=== PATIENT | male | born 1975 | race Caucasian/White ===

== ENCOUNTER → 2018-08-16 07:59 | Outpatient (CLI) | payer OTHER, SELFPAY ==
[2018-08-16 10:52] LABS: AST(SGOT) 15 U/L (15-37); Alanine Aminotransfer ALT/SGPT 39 U/L (16-61); Albumin, Serum 3.8 g/dL (3.2-5.0); Alkaline Phosphatase 156 U/L (45-117); Anion Gap 11 (5-15); BUN 18 mg/dL (7-18); BUN/Creat Ratio 16.8 RATIO (10-20); Calcium,Total 9.1 mg/dL (8.5-10.1); Chloride 101 mmol/L (98-107); Cholesterol 280 mg/dL (200); Creatinine, Serum 1.07 mg/dL (0.70-1.30); EST Glomerular Filtration Rate 81 mL/min (>60); Est Glom Filt Rate - Afr Amer 98 mL/min (>60); Globulin 3.8 g/dL (2.2-4.2); Glucose 299 mg/dL (74-106); High Density Lipoprotein 40 mg/dL; Protein, Total 7.6 g/dL (6.4-8.2); Sodium Level 138 mmol/L (136-145); Triglycerides 495 mg/dL
[2018-08-16 11:20] LABS: Hemoglobin A1c 13.5 % (4.2-6.3)
== END ==
PROVIDERS: Family Medicine; Visit Provider Nurse Practitioner Family
DX: Z00.00 Encounter for general adult medical examination without abnormal findings (principal)
CPT/HCPCS: 36415; 80053; 80061; 83036

== ENCOUNTER 2020-03-07 11:53 | Emergency (ER) | payer OTHER, SELFPAY ==
[2020-03-07 11:54] VITALS: BP 146/81; PULSE 95; RESP 17; TEMP 36.6; O2SAT 98; BMI 26.4
--- NOTE | 2020-03-07 12:14 | US_ITS ---
STUDY: SCROTUM ULTRASOUND REASON FOR EXAM: Male, 44 years old. LT TESTICLE PAIN AND SWELLING TECHNIQUE: Ultrasound evaluation of the scrotum was performed with color Doppler and static rice-scale imaging. COMPARISON: None. FINDINGS: RIGHT TESTICLE INTRATESTICULAR: There is a normal size of the right testicle. The right testicle measures 4.6 cm x 2.9 cm x 2.0 cm. There is a homogenous echotexture. There is normal arterial and normal venous vascularity. There is no demonstrated right testicular mass or cyst. EXTRATESTICULAR: The epididymis is normal in size. The epididymis head measures 0.9 cm x 1.3 cm x 1.0 cm. There is normal vascularity of the epididymis. There is no demonstrated epididymal cystic structure. There is no demonstrated hydrocele. There is no demonstrated varicocele. There is no demonstrated extratesticular mass or cyst. LEFT TESTICLE INTRATESTICULAR: There is a normal size of the left testicle. The left testicle measures 4.1 cm x 3.1 cm x 2.1 cm. There is a homogenous echotexture. There is normal arterial and normal venous vascularity. There is no demonstrated left testicular mass or cyst. EXTRATESTICULAR: The epididymis is normal in size. The epididymis head measures 0.9 cm x 1.4 cm x 1.3 cm. There is increased (hyperemic) vascularity of the epididymis. There is no demonstrated epididymal cystic structure. There is a small hydrocele. There is no demonstrated varicocele. There is no demonstrated extratesticular mass or cyst. US/Testicular with Arterial Flow IMPRESSION: Small left hydrocele. Heterogeneous appearance of the left epididymis with increased vascularity. Epididymitis should be ruled out. Electronically Signed: Tyrell Vitale, at 13:35 EDT , Service support ,
--- NOTE | 2020-03-07 12:26 | ED.DCSUM_ITS ---
History of Present Illness Informant: Patient Onset: Days - 2 days Context: Gradual Onset Timing: Continuous Quality: throbbing Location: left testicle Current Severity: Mild Maximum Severity: Moderate Worsened by: movement Relieved by: rest Associated Symptoms: constipation, dysuria Narrative: 44-year-old male presents with left testicular pain. It is been constant now for the last 2 days. He denies swelling of the scrotum. He denies trauma to the area. He is having some dysuria that started after the pain began. No penile discharge. No difficulty urinating. He does have urinary frequency specifically throughout the course of the night which also began 2 days ago after his pain started. He has been constipated for the last 2 days. He denies history of constipation. He is not having abdominal pain. He has no fever. He states that he was sexually active with his girlfriend who recently left him and it has been several weeks since he last had intercourse. He denies history of similar symptoms. He was sent in by his primary care physician Dr. Greenfield. Prior similar symptoms: No Recent Illness/Hospitalization: No <Blade Feliciano - Last Filed: 03/07/20 13:52> <Norm Lerma - Last Filed: 03/07/20 14:00> Chief Complaint: Male Pain/Injury Past Medical History Prior records reviewed: Yes Past Medical History: - - pre-diabetes Surgical History: - - right foot surgery Lives: With Family Smoking Status: Never smoker Alcohol: Occasional Drugs: None <Blade Feliciano - Last Filed: 03/07/20 13:52> <Norm Lerma - Last Filed: 03/07/20 14:00> - Allergies and Home Meds Allergies/Adverse Reactions: Allergies No Known Allergies Allergy (Verified 03/07/20 11:54) Primary Care Physician: Ester Valencia MD [Primary Care Provider] - 3-5 Days Navdeep Vazquez MD [STAFF PHYSICIAN] - Review of Systems All systems negative except as indicated General: Denies: Chills, Fever, Sweats Eyes: Denies: Visual changes - bilaterally, Diplopia ENT: Denies: Rhinorrhea, Sore throat Cardiovascular: Denies: Chest pain, Palpitations Respiratory: Denies: Dyspnea, Cough, Dyspnea on exertion Gastrointestinal: Reports: Constipation. Denies: Abdominal pain, Nausea, Vomiting, Diarrhea, Melena, Hematochezia Genitourinary: Reports: Dysuria, Frequency. Denies: Hematuria Musculoskeletal: Denies: Back pain, Extremity Pain Skin: Denies: Rash, Wounds Neurological: Denies: Headache, Weakness, Numbness <Blade Feliciano - Last Filed: 03/07/20 13:52> Physical Exam Vital Signs/Narrative: Vital Signs Temp Pulse Resp BP Pulse Ox 03/07/20 11:54 97.9 F 95 17 146/81 H 98 Inital Vital Signs reviewed: Yes General: Well nourished, Well developed, No Acute Distress Head: Normocephalic, Atraumatic Eyes: Perrl, EOMI ENT: Moist mucous membranes, No rhinorrhea Neck: Supple, Nontender Cardiovascular: Regular rate, Regular rhythm, No murmurs Respiratory: No distress, CTA bilaterally, Chest nontender Abdomen: Soft, Nontender, Nondistended, Normal bowel sounds : - - Patient has mild scrotal edema. No redness. There is no warmth. He does not have any right testicular pain on palpation. He does have pain on palpation on the left testicle. No obvious masses are palpated. He has no inguinal redness or lymphadenopathy. There is no penile discharge. Back: Nontender, Normal Inspection. Negative for: CVA tenderness Extremities: Nontender, No edema Skin: Normal color, No rash Neurological: Alert, Oriented x3, Cranial nerves II-XII grossly intact, Normal Strength, Normal Sensation Psychological: Normal affect, Normal Mood <Blade Feliciano - Last Filed: 03/07/20 13:52> Vital Signs/Narrative: Vital Signs Temp Pulse Resp BP Pulse Ox 03/07/20 11:54 97.9 F 95 17 146/81 H 98 <Norm Lerma - Last Filed: 03/07/20 14:00> Diagnostic/Tx/Re-eval Impressions Testicular Ultrasound 03/07/20 12:14 IMPRESSION: Small left hydrocele. Heterogeneous appearance of the left epididymis with increased vascularity. Epididymitis should be ruled out. Electronically Signed: Tyrell Vitale, at 13:35 EDT , Service support , 03/07/20 12:14 US Testicular [Testicular with Arterial Flow] [US] Stat - Medical Decision Making Patient declined analgesia. Testicular ultrasound demonstrated increased vascularity with a heterogeneous appearance of the left epididymis, recommended ruling out epididymitis. Clinically the patient does have pain in this area and we feel he does have epididymitis. We will treat him with antibiotics. GC and Chlamydia cultures were sent by urine. Patient states he is not been sexually active recently. He was advised on anti-inflammatories we will refer him to urology and he was given return precautions. Impressions Testicular Ultrasound 03/07/20 12:14 IMPRESSION: Small left hydrocele. Heterogeneous appearance of the left epididymis with increased vascularity. Epididymitis should be ruled out. 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 Patient has a several day history of left scrotal and testicular pain. Denies any trauma. No prior history. No fever or chills. No discharge. Lungs are clear. Heart regular rhythm no murmur. Abdomen soft nontender. Patient is external exam is tenderness to the superior lateral area of his left scrotum and testicle. There is no signs of torsion. No signs of trauma. No cellulitis. No abscess. No inguinal lymphadenopathy. No mass. Exam is consistent with epididymitis. Ultrasound consistent with increased vascularity and epididymitis. Impression: Acute left epididymitis <Norm Lerma - Last Filed: 03/07/20 14:00> ED Disposition <Blade Feliciano - Last Filed: 03/07/20 13:52> <Norm Lerma - Last Filed: 03/07/20 14:00> - Plan for ED Patient: Disposition: Home or Assisted Living Diagnosis: Epididymitis, Constipation Instructions: ED Epididymitis Prescriptions: Doxycycline 100 mg PO BID #20 cap Prescription Printed Naproxen [Naprosyn] 500 mg PO BID #14 tab Prescription Printed Referrals: Ester Valencia MD [Primary Care Provider] - 3-5 Days Navdeep Vazquez MD [STAFF PHYSICIAN] -
[2020-03-07 13:50] LABS: Bacteria 0 SEEN /hpf (None Seen); Mucous, Urine 0 SEEN /hpf (<or=2+); Squamous Epithelial Cells - UA 0 SEEN /hpf (0-5)
[2020-03-07 13:55] LABS: Color, Urine Yellow (Yellow); Glucose, Dipstick 1000 mg/dl (Normal); Ketone-Dipstick 50 mg/dl (Negative); Leukocyte Esterase-Dipstick 25 /ul (Negative); Nitrite-Dipstick Negative (Negative); Occult Blood-Urine 10 /ul (Negative); Protein-Dipstick 30 mg/dl (Negative); Urine Bilirubin Dipstick Negative (Negative); Urine Clarity Sl. Cloudy (Clear); Urine Urobilinogen 1 mg/dl (Normal)
[2020-03-07 14:04] VITALS: BP 150/82; PULSE 94; RESP 18
[2020-03-07 14:14] LABS: Red Blood Cells-Urine 0-5 SEEN /hpf (0-5); White Blood Cells 10-25 SEEN /hpf (0-5)
[2020-03-07 15:23] LABS: Chlamydia Trachomatis by PCR Negative (Negative); Neisserai gonorrhoeae by PCR Negative (Negative); Probe Check PASS; Sample Adequacy Control PASS; Specimen Processing Control PASS
== END 2020-03-07 14:04 | disposition home or self-care (01) ==
PROVIDERS: Emergency Provider Physician Assistant Medical; PCP Family Medicine
DX: N45.1 Epididymitis (principal); N43.3 Hydrocele, unspecified; K59.00 Constipation, unspecified
CPT/HCPCS: 76870; 81001; 87077; 87086; 87088; 87186; 87491; 87591; 93976; 99282

== ENCOUNTER 2024-11-20 08:15 | Outpatient (RCR) | payer OTHER, SELFPAY ==
[2024-11-06 08:23] VITALS: RESP 16; TEMP 36.2; BMI 28.3
--- NOTE | 2024-11-06 09:40 | RAD_ITS ---
EXAM: XR Right Foot Complete, 3 or More Views CLINICAL INDICATION: TECHNIQUE: Frontal, lateral and oblique views of the right foot. COMPARISON: No relevant prior studies available. FINDINGS: BONES/JOINTS: See below. SOFT TISSUES: Soft tissue swelling without acute fracture. No radiopaque foreign body. RAD/Foot min 3 Views IMPRESSION: 1. Soft tissue swelling without acute fracture. 2. If symptoms persist, repeat radiograph in 7-10 days recommended. Reading Location[facility]
--- NOTE | 2024-11-06 09:51 | PCM.WC.HP ---
History of Present Illness Date of Service: 11/06/24 [facility] Medical History (Updated 11/08/24 @ 23:[address] 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 Pressure ulcer of right heel, stage 3 Diabetic foot ulcer associated with type 2 diabetes mellitus, with fat layer exposed Diabetes mellitus Diabetic foot ulcer associated with diabetes mellitus due to underlying condition Hypertension Home Medications ?Medication ?Instructions ?Recorded ?Last Taken ?Type silver sulfadiazine 1 % topical applic topical DAILY 11/06/24 Unknown History cream (SSD) sitagliptin phosphate 50 1 tab PO BID 11/06/24 Unknown History mg-metformin 500 mg tablet (Janumet) Allergy/AdvReac Type Severity Reaction Status Date / Time No Known Allergies Allergy Verified 11/06/24 08:21 Surgical History H/O foot surgery Social History Smoking Status: Never smoker alcohol intake: current alcohol intake frequency: a few times a week Vital Signs Vital Signs Vital Signs: 11/06/24 08:23 Temperature 97.1 F L Temperature Source Temporal Respiratory Rate 16 Blood Pressure Source Monitor Blood Pressure Position Sitting Blood Pressure Location Left Arm Oxygen Delivery Method Room Air Weight Weight: 209 lb Body Mass Index (BMI) 28.3 Debridement Note Debridement Note Post-Debridement Measurements and Additional Note: Post-Debridement Measurements/Treatment WC - Nurse 1 - General Ulcer Assessment Start: 11/06/24 08:20 Freq: Status: Active Protocol: ROGER Activity Type Activity Date Activity User E-sign Co-sign Detail Recorded Client Recorded Date Recorded By Document 11/06/24 08:23 KW [id number] 11/06/24 08:35 KW 11/06/24 08:23 - Today's Visit Information Type of service Initial Visit Arrival Mode Ambulatory, Crutches Patient Identification Verified (Name & Yes ) Height and Weight Height 6 ft Weight 209 lb Weight in Pounds 209.0 lbs Weight Measurement Method Estimated by Patient Body Mass Index (BMI) 28.3 BMI Classification Overweight Vital Signs Temperature (97.8 F-99.1 F) 97.1 F L Temperature Source Temporal Pulse Location Monitor Respiratory Rate (12-18) 16 Respiratory rate source Observation Oxygen Delivery Method Room Air Source Monitor Position Sitting Blood Pressure Location Left Arm History Since Last Visit- (Skip if this is Patient's initial visit) Left Footwear Regular Shoe Right Footwear Regular Shoe Pain Scale: 0-10 Numeric Is Patient Pain Free? Yes Communication Assessment Preferred language Amharic Tray Worker Required No Able to Read Yes Able to Write Yes Communication Tools None Caregiver Communication Skills No Impairment Impairment Right Hearing Abillity Normal Left Hearing Abillity Normal Visual Assistive Devices None Teaching Assessment Preferences Verbal Barriers to Learning None Readiness To Learn Excellent Willingness to Engage in Self Management High Activies Readiness to Engage in Self Management High Activities Anxiety Level Calm Cooperation Cooperative Perception Coherent Interest in Health Problem Asks Questions Education Importance Acknowledges Need Does Patient Smoke tobacco or other Yes substances Smoking Status Never smoker Is Patient Diabetic No Functional Assessment Recent Decline in Ability to Perform Denies Any Declines Culture/Christianity/Steam Tender Cultural/Christianity Needs that may affect No Treatment Plan Would you allow our hospital pecan cleaner to No meet you for the purpose of spiritual/ emotional support? Steam Tender to contact place of adventist No WC - Nurse 1 - General Ulcer Measurement Start: 11/06/24 08:20 Freq: Status: Active Protocol: Activity Type Activity Date Activity User E-sign Co-sign Detail Recorded Client Recorded Date Recorded By Document 11/06/24 08:23 LEANN [id number] 11/06/24 08:35 KW 11/06/24 08:23 Wound Center Nurse 1 #1 rt plantar ft -Current Size (cm) - Length 1 -Current Size (cm) - Width 1.7 -Current Size (cm) - Depth 0.3 -Total Square Cm 1.7 -Date of Last Picture (Recall this 11/06/24 field) -Exudate Amt Small -Exudate Type Serosanguineous -Wound Margin Distinct, Outline Attached -Granulation Amt Large (67-100%) -Granulation Quality Red -Necrosis Amt Small (1-33%) -Texture (Wendy-wound Skin Appearance) Callus -Moisture (Wendy-wound Skin Appearance) Assessed -Color (Wendy-wound Skin Appearance) Assessed -Temperature (Wendy-wound Skin No Abnormality Appearance) (Pt Warm) -Tenderness on Palpation (Wendy-wound No Skin Appearance) -Ulcer Cleansing Rinsed/ Irrigated with Saline -Foul Odor after Cleansing No -Anesthetic Used 5% Lidocaine Gel Right Calf (cm) 38.5 Right Ankle (cm) 23.5 WC - Nurse 2 - General Ulcer CM Notes Start: 11/06/24 08:20 Freq: Status: Active Protocol: Activity Type Activity Date Activity User E-sign Co-sign Detail Recorded Client Recorded Date Recorded By Document 11/06/24 08:48 JF [id number] 11/06/24 08:53 JF 11/06/24 08:48 Wound Center Nurse 2 #1 rt plantar ft -Time 08:48 -Correct Patient Yes -Correct Side, Site, Position Yes -Correct Procedure Yes -Procedure Performed Yes -Type of Procedure Debridement -Clinical Debridement Subcutaneous -Tissue Removed Subcutaneous -Post Debridement (cm) - Length 1.0 -Post Debridement (cm) - Width 1.4 -Post Debridement (cm) - Depth 0.4 -Total Square (Post) (cm) 1.40 -Area of Debridement (cm) - Length 1.0 -Area of Debridement (cm) - Width 1.4 -Total Square (Area) (cm) 1.40 -Tunneling No -Undermining/Tunneling No -Circular Undermining No -Wound/Ulcer Outcome Not Healed -Ulcer Cleansing Rinsed/ Irrigated with Saline -Foul Odor after Cleansing No -Bioengineered Tissue No -Bleeding Controlled with Pressure -Treatment Response Procedure Tolerated Well -Offloading Yes -Type of Offloading Camwalker -Debridement - Subq, 1st 20sq cm Yes Pain Scale: 0-10 Numeric Is Patient Pain Free? Yes - Nurse 3 - General Ulcer D/C NN Start: 11/06/24 08:20 Freq: Status: Active Protocol: Activity Type Activity Date Activity User E-sign Co-sign Detail Recorded Client Recorded Date Recorded By Document 11/06/24 09:08 KW [id number] 11/06/24 09:10 KW 11/06/24 09:08 Wound Care Center Nurse 3 #1 rt plantar ft -Ulcer Cleansing Rinsed/ Irrigated with Saline -Primary Dressing Applied Promogran -Primary Dressing Covered/Secured with Dry Gauze,Dry Gauze & Roll Gauze,Secured with Tape -Promogran 1 Treatment Response Procedure Tolerated Well Pain Scale: 0-10 Numeric Is Patient Pain Free? Yes Teaching: Wound Center Dressing Your Wound -Person Taught Patient -Teaching Method Discussion, Demonstration -Response to teaching Verbalize Understanding, Reinforcement Needed WC - Visit Discharge Discharge Condition Stable Ambulatory Status Ambulatory Transportation Private Auto Medication Reconcilliation completed & No provided to patient/care provider Clinical Summary of Care Provided Yes Lab / Micro Data 11/06/24 09:28 11/06/24 09:28 Assessment/Plan Assessment/Plan (1) Diabetic foot ulcer associated with diabetes mellitus due to underlying condition: CODE(S): E08.621 - Diabetes mellitus due to underlying condition with foot ulcer; L97.509 - Non-pressure chronic ulcer of other part of unspecified foot with unspecified severity QUALIFIERS: Diabetic foot ulcer location: midfoot Laterality: right Non-pressure ulcer stage: with fat layer exposed Qualified Code(s): E08.621 - Diabetes mellitus due to underlying condition with foot ulcer; L97.412 - Non-pressure chronic ulcer of right heel and midfoot with fat layer exposed
[2024-11-06 10:42] LABS: Hematocrit 40.6 % (40-54); Hemoglobin 13.6 g/dL (13.0-16.5); Mean Corp Hgb Conc 33.5 g/dL (32-36); Mean Corpuscular Hgb 28.3 pg (27.0-32.0); Mean Corpuscular Volume 84.6 fL (80-94); Mean Platelet Vol. 10.4 fl (6.2-12.0); Platelet Count 280 K/mm3 (150-450); RBC Distribution Width CV 12.3 % (11.6-14.6); RBC Distribution Width SD 37.6 fl (35.1-43.9); White Blood Count 7.2 K/mm3 (4.4-11.0)
[2024-11-06 11:37] LABS: ALB/GLOB Ratio 0.9 RATIO (0.9-2.4); AST(SGOT) 28 U/L (15-37); Alanine Aminotransfer ALT/SGPT 45 U/L (16-61); Albumin, Serum 3.8 g/dL (3.2-5.0); Alkaline Phosphatase 146 U/L (45-117); Anion Gap 7 (5-15); BUN 23 mg/dL (7-18); BUN/Creat Ratio 20.7 RATIO (10-20); Calcium,Total 9.4 mg/dL (8.5-10.1); Chloride 104 mmol/L (98-107); Creatinine, Serum 1.11 mg/dL (0.70-1.30); EST Glomerular Filtration Rate 75 mL/min (>60); Est Glom Filt Rate - Afr Amer 91 mL/min (>60); Estimated Creatinine Clearance 98.31 ml/min; Globulin 4.2 g/dL (2.2-4.2); Glucose 234 mg/dL (74-106); Potassium 3.7 mmol/L (3.5-5.1); Sodium Level 139 mmol/L (136-145)
[2024-11-06 14:23] LABS: Hemoglobin A1c 9.4 % (3.8-5.6)
[2024-11-07 08:09] LABS: Prealbumin 33 mg/dL (12-34)
--- NOTE | 2024-11-07 15:09 | NURSING ---
PHOTO 11/06/24 RIGHT PLANTAR FOOT - INT
--- NOTE | 2024-11-08 18:09 | PCM.WC.HP ---
History of Present Illness Date of Service: 11/06/24 Chief Complaint: Right plantar foot ulceration History of Wound: This is a 49-year-old diabetic male who presented with an ulceration on the plantar surface of his right foot. The patient was referred by Dr. Mike Elizondo, a local Construction Supervisor. In June 2024, Dr. Elizondo excised a large callus from the plantar aspect of the patient's right foot. Treatment of the residual defect has included daily Epsom salts soaks, and the use of Silvadene topically. The patient has been using a cam walker boot and crutches for ambulation. 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 The patient takes Janumet for his diabetes. His most recent available hemoglobin A1c was 13.5 in 2018. His primary care physician is Dr. Ester Vaelncia. [facility] Medical History (Updated 11/08/24 @ 23:[address] 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 Pressure ulcer of right heel, stage 3 Diabetic foot ulcer associated with type 2 diabetes mellitus, with fat layer exposed Diabetes mellitus Diabetic foot ulcer associated with diabetes mellitus due to underlying condition Hypertension Home Medications ?Medication ?Instructions ?Recorded ?Last Taken ?Type silver sulfadiazine 1 % topical applic topical DAILY 11/06/24 Unknown History cream (SSD) sitagliptin phosphate 50 1 tab PO BID 11/06/24 Unknown History mg-metformin 500 mg tablet (Janumet) Allergy/AdvReac Type Severity Reaction Status Date / Time No Known Allergies Allergy Verified 11/06/24 08:21 Surgical History H/O foot surgery Social History Smoking Status: Never smoker alcohol intake: current alcohol intake frequency: a few times a week Vital Signs Vital Signs Vital Signs: Weight Weight: 209 lb Body Mass Index (BMI) 28.3 Physical Exam Const alert, oriented x3, no apparent distress, average body habitus and well nourished Constitutional Narrative: The patient's BMI is 28.3. General Appearance: cooperative, comfortable, well kempt and well developed Orientation / Consciousness: awake, oriented to person, oriented to place and oriented to time Exam Limitations: no limitations HEENT normocephalic and head/scalp atraumatic Head and Scalp: normal to inspection, normocephalic and atraumatic Face and Sinus: normal facial exam Nose: external nose normal External Ear: external ears normal Eyes EOMs intact bilaterally General Eye: normal appearance of both eyes Neck full ROM Resp normal respiratory effort, normal air movement, no retractions and no use of accessory muscles Effort and Inspection: able to speak in complete sentences Extremity no calf tenderness General Extremity: Negative for clubbing or cyanosis Skin Wound Narrative: A full-thickness ulceration is noted on the plantar aspect of the patient's right foot, extending through all layers of the dermis and into the subcutaneous tissues. It is located near the ball of the foot, at the 1st metatarso-palangeal joint. There is no obvious sign of infection or cellulitis. There is no drainage or odor. Dimensions are documented elsewhere. There is a large amount of callus and nonviable, macerated tissue circumferentially about the ulceration. It appears to be a Weiss grade 2 ulceration. Ulcer margins are not well beveled. Neuro oriented x3, CN's II-XII intact bilaterally, moves all extremities, no focal motor deficits and no sensory deficits noted Sensorium / Orientation: awake, alert, oriented to person, oriented to place and oriented to time Psych Appearance: grossly normal and appropriate Attitude: calm Activity / Motor Behavior: appropriate eye contact Speech: normal speech Mood & Affect: euthymic mood Thought Process: normal thought process Thought Content: normal thought content Attention / Concentration: attention grossly intact Debridement Note Debridement Note Wound debrided: Right plantar foot ulceration Laterality: Right Wound Grade/Stage: Weiss grade 2 Type of Debridement: Excisional debridement Anesthesia Used: 5% Lidocaine Gel Depth: Down to and including healthy tissue and in the subcutaneous layer Percentage of wound debrided: 100 Instrument Used: 5mm curette Tissue Removed: Bioburden, nonviable tissue, and callus Severity: Fat Layer Exposed Amount of bleeding with debridement: Mild Bleeding Controlled with: Compression and gauze Patient tolerated procedure: Patient tolerated procedure well Debridement Free Text: The patient's right foot ulceration is surrounded circumferentially by a large amount of callus. Effort was made to excise a portion of the callus tissue. Post-Debridement Measurements and Additional Note: Post-Debridement Measurements/Treatment WC - Nurse 1 - General Ulcer Assessment Start: 11/06/24 08:20 Freq: Status: Active Protocol: ROGER Activity Type Activity Date Activity User E-sign Co-sign Detail Recorded Client Recorded Date Recorded By Document 11/06/24 08:23 KW [id number] 11/06/24 08:35 KW 11/06/24 08:23 WC - Today's Visit Information Type of service Initial Visit Arrival Mode Ambulatory, Crutches Patient Identification Verified (Name & Yes ) Height and Weight Height 6 ft Weight 209 lb Weight in Pounds 209.0 lbs Weight Measurement Method Estimated by Patient Body Mass Index (BMI) 28.3 BMI Classification Overweight Vital Signs Temperature (97.8 F-99.1 F) 97.1 F L Temperature Source Temporal Pulse Location Monitor Respiratory Rate (12-18) 16 Respiratory rate source Observation Oxygen Delivery Method Room Air Source Monitor Position Sitting Blood Pressure Location Left Arm History Since Last Visit- (Skip if this is Patient's initial visit) Left Footwear Regular Shoe Right Footwear Regular Shoe Pain Scale: 0-10 Numeric Is Patient Pain Free? Yes Communication Assessment Preferred language [place] Grey Tender Required No Able to Read Yes Able to Write Yes Communication Tools None Caregiver Communication Skills No Impairment Impairment Right Hearing Abillity Normal Left Hearing Abillity Normal Visual Assistive Devices None Teaching Assessment Preferences Verbal Barriers to Learning None Readiness To Learn Excellent Willingness to Engage in Self Management High Activies Readiness to Engage in Self Management High Activities Anxiety Level Calm Cooperation Cooperative Perception Coherent Interest in Health Problem Asks Questions Education Importance Acknowledges Need Does Patient Smoke tobacco or other Yes substances Smoking Status Never smoker Is Patient Diabetic No Functional Assessment Recent Decline in Ability to Perform Denies Any Declines Culture/Congregational/Transport Manager Cultural/Congregational Needs that may affect No Treatment Plan Would you allow our hospital rn testing to No meet you for the purpose of spiritual/ emotional support? Transport Manager to contact place of nondenominational No WC - Nurse 1 - General Ulcer Measurement Start: 11/06/24 08:20 Freq: Status: Active Protocol: Activity Type Activity Date Activity User E-sign Co-sign Detail Recorded Client Recorded Date Recorded By Document 11/06/24 08:23 KW [id number] 11/06/24 08:35 KW 11/06/24 08:23 Wound Center Nurse 1 #1 rt plantar ft -Current Size (cm) - Length 1 -Current Size (cm) - Width 1.7 -Current Size (cm) - Depth 0.3 -Total Square Cm 1.7 -Date of Last Picture (Recall this 11/06/24 field) -Exudate Amt Small -Exudate Type Serosanguineous -Wound Margin Distinct, Outline Attached -Granulation Amt Large (67-100%) -Granulation Quality Red -Necrosis Amt Small (1-33%) -Texture (Wendy-wound Skin Appearance) Callus -Moisture (Wendy-wound Skin Appearance) Assessed -Color (Wendy-wound Skin Appearance) Assessed -Temperature (Wendy-wound Skin No Abnormality Appearance) (Pt Warm) -Tenderness on Palpation (Wendy-wound No Skin Appearance) -Ulcer Cleansing Rinsed/ Irrigated with Saline -Foul Odor after Cleansing No -Anesthetic Used 5% Lidocaine Gel Right Calf (cm) 38.5 Right Ankle (cm) 23.5 WC - Nurse 2 - General Ulcer CM Notes Start: 11/06/24 08:20 Freq: Status: Active Protocol: Activity Type Activity Date Activity User E-sign Co-sign Detail Recorded Client Recorded Date Recorded By Document 11/06/24 08:48 DALIA [id number] 11/06/24 08:53 DALIA 11/06/24 08:48 Wound Center Nurse 2 #1 rt plantar ft -Time 08:48 -Correct Patient Yes -Correct Side, Site, Position Yes -Correct Procedure Yes -Procedure Performed Yes -Type of Procedure Debridement -Clinical Debridement Subcutaneous -Tissue Removed Subcutaneous -Post Debridement (cm) - Length 1.0 -Post Debridement (cm) - Width 1.4 -Post Debridement (cm) - Depth 0.4 -Total Square (Post) (cm) 1.40 -Area of Debridement (cm) - Length 1.0 -Area of Debridement (cm) - Width 1.4 -Total Square (Area) (cm) 1.40 -Tunneling No -Undermining/Tunneling No -Circular Undermining No -Wound/Ulcer Outcome Not Healed -Ulcer Cleansing Rinsed/ Irrigated with Saline -Foul Odor after Cleansing No -Bioengineered Tissue No -Bleeding Controlled with Pressure -Treatment Response Procedure Tolerated Well -Offloading Yes -Type of Offloading Camwalker -Debridement - Subq, 1st 20sq cm Yes Pain Scale: 0-10 Numeric Is Patient Pain Free? Yes WC - Nurse 3 - General Ulcer D/C NN Start: 11/06/24 08:20 Freq: Status: Active Protocol: Activity Type Activity Date Activity User E-sign Co-sign Detail Recorded Client Recorded Date Recorded By Document 11/06/24 09:08 LEANN [id number] 11/06/24 09:10 KW 11/06/24 09:08 Wound Care Center Nurse 3 #1 rt plantar ft -Ulcer Cleansing Rinsed/ Irrigated with Saline -Primary Dressing Applied Promogran -Primary Dressing Covered/Secured with Dry Gauze,Dry Gauze & Roll Gauze,Secured with Tape -Promogran 1 Treatment Response Procedure Tolerated Well Pain Scale: 0-10 Numeric Is Patient Pain Free? Yes Teaching: Wound Center Dressing Your Wound -Person Taught Patient -Teaching Method Discussion, Demonstration -Response to teaching Verbalize Understanding, Reinforcement Needed WC - Visit Discharge Discharge Condition Stable Ambulatory Status Ambulatory Transportation Private Auto Medication Reconcilliation completed & No provided to patient/care provider Clinical Summary of Care Provided Yes Lab / Micro Data 11/06/24 09:28 11/06/24 09:28 Charges/Coding Multi Select Codes Visit Charges Office Visit/Consults: 84637 OV L4 New 45 min Integumentary Integumentary CPT Codes: 13881 Rani subq tissue 20 sq cm/< Assessment/Plan Assessment/Plan (1) Diabetic foot ulcer associated with type 2 diabetes mellitus, with fat layer exposed: CODE(S): E11.621 - Type 2 diabetes mellitus with foot ulcer; L97.502 - Non-pressure chronic ulcer of other part of unspecified foot with fat layer exposed QUALIFIERS: Diabetic foot ulcer location: midfoot Laterality: right Qualified Code(s): E11.621 - Type 2 diabetes mellitus with foot ulcer; L97.412 - Non-pressure chronic ulcer of right heel and midfoot with fat layer exposed (2) Non-pressure chronic ulcer of other part of right foot with fat layer exposed: CODE(S): L97.512 - Non-pressure chronic ulcer of other part of right foot with fat layer exposed (3) Diabetic foot ulcer associated with diabetes mellitus due to underlying condition: CODE(S): E08.621 - Diabetes mellitus due to underlying condition with foot ulcer; L97.509 - Non-pressure chronic ulcer of other part of unspecified foot with unspecified severity QUALIFIERS: Diabetic foot ulcer location: midfoot Laterality: right Non-pressure ulcer stage: with fat layer exposed Qualified Code(s): E08.621 - Diabetes mellitus due to underlying condition with foot ulcer; L97.412 - Non-pressure chronic ulcer of right heel and midfoot with fat layer exposed (4) Diabetes mellitus: CODE(S): E11.9 - Type 2 diabetes mellitus without complications PLAN: Plan This is a 49-year-old male who presented with a large ulceration on the plantar aspect of the right foot. The origin of the ulceration dates back to June 2024, at which time his Construction Supervisor excised a large callus. Since that time, as per instructions from his Construction Supervisor, the patient has been soaking the ulcer site daily with Epsom salts. He has been using Silvadene topically. It appears to be a Weiss grade 2 ulceration, and has failed to show signs of significant healing. The patient has been referred for definitive management. The patient is now instructed to forego daily soaking. We are to implement the use of Promogran topically to the ulceration on a daily basis. The patient has been instructed in the appropriate means of application. An excisional debridement has been performed [facility]. However, there remains a large amount of callus that will require additional excisional debridement in the near future. This nonviable callus will require removal before healing can progress by secondary intention. The patient has been instructed to optimize his glycemic control. Collaboration with his primary care physician has been recommended. He is to continue using his CAM walker boot and crutches for ambulation. We are to obtain routine diagnostic studies which will include laboratory studies (CBC, CMP, total protein, serum pre-albumin, and hemoglobin A1c). X-rays of the right foot will be obtained. A noninvasive lower extremity arterial study will also be ordered. The patient is to return in 1 week for reevaluation. Total time: 48 minutes
[2024-11-13 08:10] VITALS: BP 179/92; PULSE 84; RESP 18; TEMP 36.2; BMI 28.3
--- NOTE | 2024-11-16 13:00 | HP.PCM_ITS ---
History of Present Illness Date of Service: 11/13/24 Chief Complaint: Right plantar foot ulceration History of Wound: This is a 49-year-old diabetic male who presented with an ulceration on the plantar surface of his right foot. The patient was referred by Dr. Mike Elizondo, a local Respite Provider. In June 2024, Dr. Elizondo excised a large callus from the plantar aspect of the patient's right foot. Treatment of the residual defect included daily Epsom salts soaks, and the use of Silvadene topically. The patient has been using a cam walker boot and crutches for ambulation. 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 The patient takes Janumet for his diabetes. His most recent available hemoglobin A1c was 13.5 in 2018. His primary care physician is Dr. Ester Valencia. 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 Pressure ulcer of right heel, stage 3 Diabetic foot ulcer associated with type 2 diabetes mellitus, with fat layer exposed Diabetes mellitus Diabetic foot ulcer associated with diabetes mellitus due to underlying condition Hypertension Home Medications ?Medication ?Instructions ?Recorded ?Last Taken ?Type silver sulfadiazine 1 % topical applic topical DAILY 0 11/06/24 Unknown History cream (SSD) sitagliptin phosphate 50 1 tab PO BID 11/06/24 Unknow n History mg-metformin 500 mg tablet (Janumet) Allergy/AdvReac Type Severity Reaction Status Date / Time No Known Allergies Allergy Verified 11/06/24 08:21 Surgical History H/O foot surgery Social History Smoking Status: Never smoker alcohol intake: current alcohol intake frequency: a few times a week Vital Signs Vital Signs Vital Signs: Weight Weight: 209 lb Body Mass Index (BMI) 28.3 Physical Exam Const alert, oriented x3, no apparent distress, average body habitus and well nourished Constitutional Narrative: The patient's BMI is 28.3. General Appearance: cooperative, comfortable, well kempt and well developed Orientation / Consciousness: awake, oriented to person, oriented to place and oriented to time Exam Limitations: no limitations HEENT normocephalic and head/scalp atraumatic Head and Scalp: normal to inspection, normocephalic and atraumatic Face and Sinus: normal facial exam Nose: external nose normal External Ear: external ears normal Eyes EOMs intact bilaterally General Eye: normal appearance of both eyes Neck full ROM Resp normal respiratory effort, normal air movement, no retractions and no use of accessory muscles Effort and Inspection: able to speak in complete sentences Extremity no calf tenderness General Extremity: Negative for clubbing or cyanosis Skin Wound Narrative: A full-thickness ulceration is noted on the plantar aspect of the patient's right foot, extending through all layers of the dermis and into the subcutaneous tissues. It is located near the ball of the foot, at the 1st metatarso- palangeal joint. There is no obvious sign of infection or cellulitis. There is no drainage or odor. Dimensions are documented elsewhere. There is a large amount of callus and nonviable tissue circumferentially about the ulceration. It appears to be a Weiss grade 2 ulceration. Ulcer margins are not well beveled. Neuro oriented x3, CN's II-XII intact bilaterally, moves all extremities, no focal motor deficits and no sensory deficits noted Sensorium / Orientation: awake, alert, oriented to person, oriented to place and oriented to time Psych Appearance: grossly normal and appropriate Attitude: calm Activity / Motor Behavior: appropriate eye contact Speech: normal speech Mood & Affect: euthymic mood Thought Process: normal thought process Thought Content: normal thought content Attention / Concentration: attention grossly intact Debridement Note Debridement Note Wound debrided: Right plantar foot ulceration Laterality: Right Wound Grade/Stage: Weiss Grade 2 Type of Debridement: Excisional debridement Anesthesia Used: 5% Lidocaine Gel Depth: Down to and including healthy tissue and in the subcutaneous layer Percentage of wound debrided: 100 Instrument Used: 5mm curette, #15 blade, Forceps and - (Rongeur) Tissue Removed: Bioburden, nonviable tissue, and callus Severity: Fat Layer Exposed Amount of bleeding with debridement: Mild Bleeding Controlled with: Compression and gauze Patient tolerated procedure: Patient tolerated procedure well Debridement Free Text: The patient's right foot ulceration is surrounded circumferentially by a large amount of callus. Effort was made to excise a portion of the callus tissue. Post-Debridement Measurements and Additional Note: Post-Debridement Measurements/Treatment - Nurse 1 - General Ulcer Assessment Start: 11/06/24 08:20 Freq: Status: Active Protocol: ROGER Activity Type Activity Date Activity User E-sign Co-sign Detail Recorded Client Recorded Date Recorded By Document 11/06/24 08:23 KW [id number] 11/06/24 08:35 KW Document 11/13/24 08:10 RB [id number] 11/13/24 08:15 RB 11/06/24 11/13/24 08:23 08:10 WC - Today's Visit Information Type of service Initial Visit Follow-up Visit (Physician/FOOD AND BEVERAGE MANAGER ) Arrival Mode Ambulatory, Ambulatory Crutches Transfer Assistance None Patient Identification Verified (Name & Yes Yes ) Patient Requires Transmission-Based No Precautions Height and Weight Height 6 ft Weight 209 lb Weight in Pounds 209.0 lbs Weight Measurement Method Estimated by Patient Body Mass Index (BMI) 28.3 28.3 BMI Classification Overweight Overweight Vital Signs Temperature (97.8 F-99.1 F) 97.1 F L 97.2 F L Temperature Source Temporal Temporal Pulse Rate (60-100) 84 Pulse Location Monitor Monitor Respiratory Rate (12-18) 16 18 Respiratory rate source Observation Observation Oxygen Delivery Method Room Air Blood Pressure (90/60-120/80) 179/92 H Blood Pressure Mean 121 Source Monitor Monitor Position Sitting Semi-Fowlers Blood Pressure Location Left Arm Left Arm History Since Last Visit- (Skip if this is Patient's initial visit) Have you changed medications since your No last visit? Any new allergies or adverse reactions No Had a fall/change in ADL's that may No increase risk of falls Signs or symptoms of abuse and/or No neglect since last visit Have you been in the hospital since your No last visit? Has dressing in place as prescribed Yes Has compression in place as prescribed N/A Has offloadiing in place as prescribed Yes Experienced any changes in pain level or No management Left Footwear Regular Shoe Regular Shoe Right Footwear Regular Shoe Removable Cast Walker/Walking Boot Pain Scale: 0-10 Numeric Is Patient Pain Free? Yes Yes Communication Assessment Preferred language Austrian Florist Supplies Salesperson Required No Able to Read Yes Able to Write Yes Communication Tools None Caregiver Communication Skills No Impairment Impairment Right Hearing Abillity Normal Left Hearing Abillity Normal Visual Assistive Devices None Teaching Assessment Preferences Verbal Barriers to Learning None Readiness To Learn Excellent Willingness to Engage in Self Management High Activies Readiness to Engage in Self Management High Activities Anxiety Level Calm Cooperation Cooperative Perception Coherent Interest in Health Problem Asks Questions Education Importance Acknowledges Need Does Patient Smoke tobacco or other Yes substances Smoking Status Never smoker Is Patient Diabetic No Functional Assessment Recent Decline in Ability to Perform Denies Any Declines Culture/Hindu/Physical Anthropologist Cultural/Hindu Needs that may affect No Treatment Plan Would you allow our hospital credit correspondence clerk to No meet you for the purpose of spiritual/ emotional support? Physical Anthropologist to contact place of jehovah's witness No WC - Nurse 1 - General Ulcer Measurement Start: 11/06/24 08:20 Freq: Status: Active Protocol: Activity Type Activity Date Activity User E-sign Co-sign Detail Recorded Client Recorded Date Recorded By Document 11/06/24 08:23 KW [id number] 11/06/24 08:35 KW Document 11/13/24 08:10 RB [id number] 11/13/24 08:15 RB 11/06/24 11/13/24 08:23 08:10 Wound Center Nurse 1 #1 rt plantar ft -Combined with other wound No -Current Size (cm) - Length 1 0.8 -Current Size (cm) - Width 1.7 1.6 -Current Size (cm) - Depth 0.3 0.3 -Total Square Cm 1.7 1.28 -Date of Last Picture (Recall this 11/06/24 field) -Tunneling No -Undermining/Tunneling No -Circular Undermining No -Exudate Amt Small Medium -Exudate Type Serosanguineous Serosanguineous -Wound Margin Distinct, Thickened & Outline Rolled Under Attached -Granulation Amt Large (67-100%) Medium (34-66%) -Granulation Quality Red [place] -Slough/Fibrin Yes -Necrosis Amt Small (1-33%) Medium (34-66%) -Necrotic Tissue Type Adherent Slough -Structure Exposed N/A -Texture (Wendy-wound Skin Appearance) Callus Assessed,Callus -Moisture (Wendy-wound Skin Appearance) Assessed Assessed -Color (Wendy-wound Skin Appearance) Assessed Assessed -Temperature (Wendy-wound Skin No Abnormality No Abnormality Appearance) (Pt Warm) (Pt Warm) -Tenderness on Palpation (Wendy-wound No No Skin Appearance) -Ulcer Cleansing Rinsed/ Wound Cleanser Irrigated with Saline -Foul Odor after Cleansing No No -Anesthetic Used 5% Lidocaine 5% Lidocaine Gel Gel Right Calf (cm) 38.5 Right Ankle (cm) 23.5 WC - Nurse 2 - General Ulcer CM Notes Start: 11/06/24 08:20 Freq: Status: Active Protocol: Activity Type Activity Date Activity User E-sign Co-sign Detail Recorded Client Recorded Date Recorded By Document 11/06/24 08:48 JF [id number] 11/06/24 08:53 JF Document 11/13/24 08:33 JF [id number] 11/13/24 08:35 JF Edit Result 11/13/24 08:33 JF (1) [id number] 11/13/24 08:36 JF (1) #1 rt plantar ft - Bleeding Controlled with Pressure => Pressure,Silver => Nitrate 11/06/24 11/13/24 08:48 08:33 Wound Center Nurse 2 #1 rt plantar ft -Time 08:48 08:34 -Correct Patient Yes Yes -Correct Side, Site, Position Yes Yes -Correct Procedure Yes Yes -Procedure Performed Yes Yes -Type of Procedure Debridement Debridement -Clinical Debridement Subcutaneous Subcutaneous -Tissue Removed Subcutaneous Subcutaneous -Post Debridement (cm) - Length 1.0 1.3 -Post Debridement (cm) - Width 1.4 2.3 -Post Debridement (cm) - Depth 0.4 0.3 -Total Square (Post) (cm) 1.40 2.99 -Area of Debridement (cm) - Length 1.0 1.3 -Area of Debridement (cm) - Width 1.4 2.3 -Total Square (Area) (cm) 1.40 2.99 -Tunneling No No -Undermining/Tunneling No No -Circular Undermining No No -Wound/Ulcer Outcome Not Healed Not Healed -Ulcer Cleansing Rinsed/ Rinsed/ Irrigated with Irrigated with Saline Saline -Foul Odor after Cleansing No No -Bioengineered Tissue No No -Bleeding Controlled with Pressure Pressure,Silver Nitrate -Treatment Response Procedure Procedure Tolerated Well Tolerated Well -Offloading Yes Yes -Type of Offloading Camwalker Camwalker -Debridement - Subq, 1st 20sq cm Yes Yes Pain Scale: 0-10 Numeric Is Patient Pain Free? Yes Yes VARUN - Nurse 3 - General Ulcer D/C NN Start: 11/06/24 08:20 Freq: Status: Active Protocol: Activity Type Activity Date Activity User E-sign Co-sign Detail Recorded Client Recorded Date Recorded By Document 11/06/24 09:08 KW [id number] 11/06/24 09:10 KW Document 11/13/24 08:49 RB [id number] 11/13/24 08:49 RB 11/06/24 11/13/24 09:08 08:49 Wound Care Center Nurse 3 #1 rt plantar ft -Ulcer Cleansing Rinsed/ Rinsed/ Irrigated with Irrigated with Saline Saline -Primary Dressing Applied Promogran Promogran -Primary Dressing Covered/Secured with Dry Gauze,Dry Dry Gauze, Gauze & Roll Secured with Gauze,Secured Tape with Tape -Promogran 1 1 Treatment Response Procedure Procedure Tolerated Well Tolerated Well Pain Scale: 0-10 Numeric Is Patient Pain Free? Yes Yes Teaching: Wound Center Dressing Your Wound -Person Taught Patient Patient,Family -Teaching Method Discussion, Discussion, Demonstration Demonstration -Response to teaching Verbalize Verbalize Understanding, Understanding Reinforcement Needed WC - Visit Discharge Discharge Condition Stable Stable Ambulatory Status Ambulatory Ambulatory, Crutches Transportation Private Auto Private Auto Medication Reconcilliation completed & No No provided to patient/care provider Clinical Summary of Care Provided Yes Yes Lab / Micro Data Attestation: I reviewed the patient's lab results. Lab results narrative: Laboratory Tests 11/06/24 09:28 WBC 7.2 Hgb 13.6 Hct 40.6 Plt Count 280 Sodium 139 Potassium 3.7 Chloride 104 BUN 23 H Creatinine 1.11 Glucose 234 H Hemoglobin A1c 9.4 H Calcium 9.4 Total Bilirubin 0.50 AST 28 ALT 45 Alkaline Phosphatase 146 H Total Protein 8.0 Albumin 3.8 Prealbumin 33 11/06/24 09:28 11/06/24 09:28 Charges/Coding Procedures Integumentary [id number]: [id number] Rani subq tissue 20 sq cm/< Assessment/Plan Assessment/Plan (1) Diabetic foot ulcer associated with type 2 diabetes mellitus, with fat layer exposed: CODE(S): E11.621 - Type 2 diabetes mellitus with foot ulcer; L97.502 - Non-pressure chronic ulcer of other part of unspecified foot with fat layer exposed QUALIFIERS: Diabetic foot ulcer location: midfoot Laterality: r ight Qualified Code(s): E11.621 - Type 2 diabetes mellitus with foot ulcer; L97.412 - Non-pressure chronic ulcer of right heel and midfoot with fat layer exposed (2) Non-pressure chronic ulcer of other part of right foot with fat layer exposed: CODE(S): L97.512 - Non-pressure chronic ulcer 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9 - Type 2 diabetes mellitus without complications PLAN: Plan This is a 49-year-old male who presented with a large ulceration on the plantar aspect of the right foot. The origin of the ulceration dates back to June 2024, at which time his Respite Provider excised a large callus. Since that time, as per instructions from his Respite Provider, the patient had been soaking the ulcer site daily with Epsom salts. He had been using Silvadene topically. It appears to be a Weiss grade 2 ulceration, and has failed to show signs of significant healing. The patient has been referred for definitive management. The patient is now instructed to forego daily soaking. We are to continue the use of Promogran topically to the ulceration on a daily basis. The patient has been instructed in the appropriate means of application. An excisional debridement has been performed in the [facility] today. Effort was made to remove a large portion of the circumferential callus. However, there remains a large amount of callus that will require additional excisional debridement in the near future. This nonviable callus will require removal before healing can progress by secondary intention, as the wound margins should, ideally, consist of healthy and viable tissue, with adequate beveling. The patient has been instructed to optimize his glycemic control. Collaboration with his primary care physician has been recommended. His recent laboratory results have been reviewed, and it is noted that his hemoglobin A1c was 9.4, and serum glucose 234. Total protein was 8.0 and serum free albumin was 33. The patient has been encouraged to continue consuming a nutritious, high-protein diet. He is to continue using his CAM walker boot and crutches for ambulation for offloading purposes. X-rays of the right foot revealed soft tissue swelling. A noninvasive lower extremity arterial study is pending. The patient is to return in 1 week for reevaluation. Total time: 25 minutes
[2024-11-20 08:33] VITALS: BP 150/83; PULSE 83; RESP 18; TEMP 35.9; BMI 28.3
--- NOTE | 2024-11-20 09:14 | PN.PCM_ITS ---
History of Present Illness Date of Service: 11/20/24 Chief Complaint: Right plantar foot ulceration History of Wound: This is a 49-year-old diabetic male who presented with an ulceration on the plantar surface of his right foot. The patient was referred by Dr. Mike Elizondo, a local Dsp Engineer. In June 2024, Dr. Elizondo excised a large callus from the plantar aspect of the patient's right foot. Treatment of the residual defect included daily Epsom salts soaks, and the use of Silvadene topically. The patient has been using a cam walker boot and crutches for ambulation. 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 The patient takes Janumet for his diabetes. His most recent available hemoglobin A1c was 13.5 in 2018. His primary care physician is Dr. Ester Valencia. Progress of Wound: No changes today. Denies fever chills nausea vomiting chest pain calf pain shortness of breath. PICC patient compliant with treatment; however, presents in boot that is covered in mud today. Objective Data Objective Data Vital Signs: Vital Signs Temp Pulse Resp BP O2 Del Method 96.6 F L 83 18 150/83 H Room Air 11/20/24 08:33 11/20/24 08:33 11/20/24 08:33 11/20/24 08:33 11/06/24 08:23 Oxygen Delivery Method Room Air Weight: 94.801 kg Body Mass Index (BMI) 28.3 Lab / Micro Data 11/06/24 09:28 11/06/24 09:28 Physical Exam Narrative Vascular: Dorsalis pedis posterior tibial pulses palpable for the left foot. Digital hair growth noted. Some edema noted to the left foot. Neurologic: Absent light touch protective sensation of bilateral feet. Dermatologic: Full-thickness wound noted to the plantar first metatarsophalangeal joint right foot. Wound demonstrates some undermining with hyperkeratosis to periwound area with clean granular base. No deep probing. Pre and postdebridement measurements document nursing notes. No acute signs of infection noted today. Musculoskeletal: Rigidly plantarflexed first ray right foot. Patient has history of foot reconstruction when he was a kid believe this created a plantarflexed first ray which is now causing ulceration to the plantar first MPJ due to setting of diabetic neuropathy. Const alert and oriented x3 Debridement Note Debridement Note Post-Debridement Measurements and Additional Note: Post-Debridement Measurements/Treatment WC - Nurse 1 - General Ulcer Assessment Start: 11/06/24 08:20 Freq: Status: Active Protocol: ROEGR Activity Type Activity Date Activity User E-sign Co-sign Detail Recorded Client Recorded Date Recorded By Document 11/06/24 08:23 KW [id number] 11/06/24 08:35 KW Document 11/13/24 08:10 RB [id number] 11/13/24 08:15 RB Document 11/20/24 08:33 RB [id number] 11/20/24 08:35 RB 11/06/24 11/13/24 11/20/24 08:23 08:10 08:33 WC - Today's Visit Information Type of service Initial Visit Follow-up Visit Follow-up Visit (Physician/CONSUMER ADVOCATE (Physician/CONSUMER ADVOCATE ) ) Arrival Mode Ambulatory, Ambulatory Ambulatory Crutches Transfer Assistance None None Patient Identification Verified (Name & Yes Yes Yes ) Patient Requires Transmission-Based No No Precautions Height and Weight Height 6 ft Weight 94.801 kg Weight in Pounds 209.0 lbs Weight Measurement Method Estimated by Patient Body Mass Index (BMI) 28.3 28.3 28.3 BMI Classification Overweight Overweight Overweight Vital Signs Temperature (97.8 F-99.1 F) 97.1 F L 97.2 F L 96.6 F L Temperature Source Temporal Temporal Temporal Pulse Rate (60-100) 84 83 Pulse Location Monitor Monitor Monitor Respiratory Rate (12-18) 16 18 18 Respiratory rate source Observation Observation Observation Oxygen Delivery Method Room Air Blood Pressure (90/60-120/80) 179/92 H 150/83 H Blood Pressure Mean (mm Hg) 121 105 Source Monitor Monitor Monitor Position Sitting Semi-Fowlers Semi-Fowlers Blood Pressure Location Left Arm Left Arm Left Arm History Since Last Visit- (Skip if this is Patient's initial visit) Have you changed medications since your No No last visit? Any new allergies or adverse reactions No No Had a fall/change in ADL's that may No No increase risk of falls Signs or symptoms of abuse and/or No No neglect since last visit Have you been in the hospital since your No No last visit? Has dressing in place as prescribed Yes Yes Has compression in place as prescribed N/A No Has offloadiing in place as prescribed Yes Yes Experienced any changes in pain level or No No management Left Footwear Regular Shoe Regular Shoe Regular Shoe Right Footwear Regular Shoe Removable Cast Removable Cast Walker/Walking Walker/Walking Boot Boot Pain Scale: 0-10 Numeric Is Patient Pain Free? Yes Yes Yes Communication Assessment Preferred language Spanish Director Facilities Maintenance Required No Able to Read Yes Able to Write Yes Communication Tools None Caregiver Communication Skills No Impairment Impairment Right Hearing Abillity Normal Left Hearing Abillity Normal Visual Assistive Devices None Teaching Assessment Preferences Verbal Barriers to Learning None Readiness To Learn Excellent Willingness to Engage in Self Management High Activies Readiness to Engage in Self Management High Activities Anxiety Level Calm Cooperation Cooperative Perception Coherent Interest in Health Problem Asks Questions Education Importance Acknowledges Need Does Patient Smoke tobacco or other Yes substances Smoking Status Never smoker Is Patient Diabetic No Functional Assessment Recent Decline in Ability to Perform Denies Any Declines Culture/Faith/Electrogalvanizing Machine Operator Cultural/Faith Needs that may affect No Treatment Plan Would you allow our hospital armhole baster jumpbasting to No meet you for the purpose of spiritual/ emotional support? Electrogalvanizing Machine Operator to contact place of yazdanism No WC - Nurse 1 - General Ulcer Measurement Start: 11/06/24 08:20 Freq: Status: Active Protocol: Activity Type Activity Date Activity User E-sign Co-sign Detail Recorded Client Recorded Date Recorded By Document 11/06/24 08:23 KW [id number] 11/06/24 08:35 KW Document 11/13/24 08:10 RB [id number] 11/13/24 08:15 RB Document 11/20/24 08:33 RB [id number] 11/20/24 08:35 RB 11/06/24 11/13/24 11/20/24 08:23 08:10 08:33 Wound Center Nurse 1 #1 rt plantar ft -Combined with other wound No No -Current Size (cm) - Length 1 0.8 1 -Current Size (cm) - Width 1.7 1.6 1.2 -Current Size (cm) - Depth 0.3 0.3 0.5 -Total Square Cm 1.7 1.28 1.2 -Date of Last Picture (Recall this 11/06/24 field) -Photo Taken Yes -Tunneling No No -Undermining/Tunneling No No -Circular Undermining No No -Exudate Amt Small Medium Medium -Exudate Type Serosanguineous Serosanguineous Serosanguineous -Wound Margin Distinct, Thickened & Thickened Outline Rolled Under Attached -Granulation Amt Large (67-100%) Medium (34-66%) Medium (34-66%) -Granulation Quality Red Lorton Lorton -Slough/Fibrin Yes Yes -Necrosis Amt Small (1-33%) Medium (34-66%) Medium (34-66%) -Necrotic Tissue Type Adherent Slough Adherent Slough -Structure Exposed N/A N/A -Texture (Wendy-wound Skin Appearance) Callus Assessed,Callus Assessed,Callus -Moisture (Wedny-wound Skin Appearance) Assessed Assessed Assessed -Color (Wendy-wound Skin Appearance) Assessed Assessed Assessed -Temperature (Wendy-wound Skin No Abnormality No Abnormality No Abnormality Appearance) (Pt Warm) (Pt Warm) (Pt Warm) -Tenderness on Palpation (Wendy-wound No No No Skin Appearance) -Ulcer Cleansing Rinsed/ Wound Cleanser Wound Cleanser Irrigated with Saline -Foul Odor after Cleansing No No No -Anesthetic Used 5% Lidocaine 5% Lidocaine 5% Lidocaine Gel Gel Gel Right Calf (cm) 38.5 Right Ankle (cm) 23.5 WC - Nurse 2 - General Ulcer CM Notes Start: 11/06/24 08:20 Freq: Status: Active Protocol: Activity Type Activity Date Activity User E-sign Co-sign Detail Recorded Client Recorded Date Recorded By Document 11/06/24 08:48 [id number] 11/06/24 08:53 Document 11/13/24 08:33 [id number] 11/13/24 08:35 Edit Result 11/13/24 08:33 (1) [id number] 11/13/24 08:36 Document 11/20/24 08:54 [id number] 11/20/24 08:58 JF (1) #1 rt plantar ft - Bleeding Controlled with Pressure => Pressure,Silver => Nitrate 11/06/24 11/13/24 11/20/24 08:48 08:33 08:54 Wound Center Nurse 2 #1 rt plantar ft -Time 08:48 08:34 08:55 -Correct Patient Yes Yes Yes -Correct Side, Site, Position Yes Yes Yes -Correct Procedure Yes Yes Yes -Procedure Performed Yes Yes Yes -Type of Procedure Debridement Debridement Debridement -Clinical Debridement Subcutaneous Subcutaneous Subcutaneous -Tissue Removed Subcutaneous Subcutaneous Subcutaneous -Post Debridement (cm) - Length 1.0 1.3 1.2 -Post Debridement (cm) - Width 1.4 2.3 1.7 -Post Debridement (cm) - Depth 0.4 0.3 0.3 -Total Square (Post) (cm) 1.40 2.99 2.04 -Area of Debridement (cm) - Length 1.0 1.3 1.2 -Area of Debridement (cm) - Width 1.4 2.3 1.7 -Total Square (Area) (cm) 1.40 2.99 2.04 -Tunneling No No No -Undermining/Tunneling No No No -Circular Undermining No No No -Wound/Ulcer Outcome Not Healed Not Healed Not Healed -Ulcer Cleansing Rinsed/ Rinsed/ Rinsed/ Irrigated with Irrigated with Irrigated with Saline Saline Saline -Foul Odor after Cleansing No No No -Bioengineered Tissue No No No -Bleeding Controlled with Pressure Pressure,Silver Pressure Nitrate -Treatment Response Procedure Procedure Procedure Tolerated Well Tolerated Well Tolerated Well -Offloading Yes Yes Yes -Type of Offloading Camwalker Camwalker Camwalker -Debridement - Subq, 1st 20sq cm Yes Yes Yes Pain Scale: 0-10 Numeric Is Patient Pain Free? Yes Yes Yes WC - Nurse 3 - General Ulcer D/C NN Start: 11/06/24 08:20 Freq: Status: Active Protocol: Activity Type Activity Date Activity User E-sign Co-sign Detail Recorded Client Recorded Date Recorded By Document 11/06/24 09:08 KW [id number] 11/06/24 09:10 KW Document 11/13/24 08:49 RB [id number] 11/13/24 08:49 RB Document 11/20/24 09:07 JF [id number] 11/20/24 09:07 11/06/24 11/13/24 11/20/24 09:08 08:49 09:07 Wound Care Center Nurse 3 #1 rt plantar ft -Ulcer Cleansing Rinsed/ Rinsed/ Irrigated with Irrigated with Saline Saline -Primary Dressing Applied Promogran Promogran -Primary Dressing Covered/Secured with Dry Gauze,Dry Dry Gauze, Gauze & Roll Secured with Gauze,Secured Tape with Tape -Promogran 1 1 Treatment Response Procedure Procedure Tolerated Well Tolerated Well Pain Scale: 0-10 Numeric Is Patient Pain Free? Yes Yes Yes Teaching: Wound Center Dressing Your Wound -Person Taught Patient Patient,Family -Teaching Method Discussion, Discussion, Demonstration Demonstration -Response to teaching Verbalize Verbalize Understanding, Understanding Reinforcement Needed WC - Visit Discharge Discharge Condition Stable Stable Stable Ambulatory Status Ambulatory Ambulatory, Ambulatory, Crutches Crutches Transportation Private Auto Private Auto Private Auto Medication Reconcilliation completed & No No Yes provided to patient/care provider Clinical Summary of Care Provided Yes Yes Yes #1 rt plantar ft -Ulcer Cleansing Rinsed/ Irrigated with Saline -Foul Odor after Cleansing No -Primary Dressing Applied Promogran Flora Matter -Primary Dressing Covered/Secured with Dry Gauze,Dry Gauze & Roll Gauze -Promogran Flora Matter 2 Assessment/Plan Assessment/Plan (1) Non-pressure chronic ulcer of other part of right foot with fat layer exposed: CODE(S): L97.512 - Non-pressure chronic ulcer of other part of right foot with fat layer exposed PLAN: Exam performed. Radiographs negative for osteomyelitis Lab work negative for systemic infection Patient does have elevated blood glucose which is likely limiting healing Patient is awaiting arterial studies on 29 November Will likely plan for skin substitute grafting with total contact cast due to plantar foot wound Today right plantar first MPJ wound was excisionally debrided down to including level of subcutaneous tissue of all nonviable tissue using a tissue nipper and 15 blade. This is obtained with light compression. Topical anesthesia used. Pre and postdebridement measurements document nursing notes. Plan for daily wound cleansing and Flora dressing Offload with cam boot Follow-up week Contact our office any signs symptoms infection develop. (2) Type 2 diabetes mellitus with diabetic polyneuropathy: CODE(S): E11.42 - Type 2 diabetes mellitus with diabetic polyneuropathy QUALIFIERS: Diabetes mellitus oil heaterman insulin use: with oil heaterman use Qualified Code(s): E11.42 - Type 2 diabetes mellitus with diabetic polyneuropathy; Z79.4 - terminal makeup operator (current) use of insulin
--- NOTE | 2024-11-21 16:08 | WC ---
PHOTO 11/20/25 RIGHT NELSON
== END 2024-11-23 23:59 | disposition home or self-care (01) ==
LOC: WC 08:15
PROVIDERS: PCP Family Medicine; Referring Provider Podiatrist Foot & Ankle Surgery; Visit Provider Surgery
DX: E11.621 Type 2 diabetes mellitus with foot ulcer (principal); L97.412 Non-pressure chronic ulcer of right heel and midfoot with fat layer exposed; L97.512 Non-pressure chronic ulcer of other part of right foot with fat layer exposed; I10 Essential (primary) hypertension; Z79.84 Long term (current) use of oral hypoglycemic drugs
CPT/HCPCS: 11042; 36415; 73630; 80053; 83036; 84134; 85027; 99214; G0463

== ENCOUNTER 2024-12-18 08:00 | Outpatient (RCR) | payer OTHER, SELFPAY ==
[2024-11-24 02:43] VITALS: BP 150/83; PULSE 83; RESP 18; TEMP 35.9; BMI 28.3
[2024-11-27 08:05] VITALS: BP 146/97; PULSE 78; RESP 18; TEMP 36.1; BMI 28.3
--- NOTE | 2024-11-27 09:16 | PN.PCM_ITS ---
History of Present Illness Date of Service: 11/27/24 Chief Complaint: Right plantar foot ulceration History of Wound: This is a 49-year-old diabetic male who presented with an ulceration on the plantar surface of his right foot. The patient was referred by Dr. Mike Elizondo, a local Trash Collector Supervisor. In June 2024, Dr. Elizondo excised a large callus from the plantar aspect of the patient's right foot. Treatment of the residual defect included daily Epsom salts soaks, and the use of Silvadene topically. The patient has been using a cam walker boot and crutches for ambulation. 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 The patient takes Janumet for his diabetes. His most recent available hemoglobin A1c was 13.5 in 2018. His primary care physician is Dr. Ester Valencia. Progress of Wound: no changes today Objective Data Objective Data Vital Signs: Vital Signs Temp Pulse Resp BP O2 Del Method 96.9 F L 78 18 146/97 H Room Air 11/27/24 08:05 11/27/24 08:05 11/27/24 08:05 11/27/24 08:05 11/27/24 08:05 Oxygen Delivery Method Room Air Weight: 94.801 kg Body Mass Index (BMI) 28.3 Physical Exam Narrative Vascular: Dorsalis pedis posterior tibial pulses palpable for the left foot. Digital hair growth noted. Some edema noted to the left foot. Neurologic: Absent light touch protective sensation of bilateral feet. Dermatologic: Full-thickness wound noted to the plantar first metatarsop halangeal joint right foot. Wound demonstrates some undermining with hyperkeratosis to periwound area with clean granular base. No deep probing. Pre and postdebridement measurements document nursing notes. No acute signs of infection noted today. Musculoskeletal: Rigidly plantarflexed first ray right foot. Patient has history of foot reconstruction when he was a kid believe this created a pl antarflexed first ray which is now causing ulceration to the plantar first MPJ due to setting of diabetic neuropathy. Const alert and oriented x3 Debridement Note Debridement Note Post-Debridement Measurements and Additional Note: Post-Debridement Measurements/Treatment WC - Nurse 1 - General Ulcer Assessment Start: 11/27/24 08:04 Freq: Status: Active Protocol: VARUN.SULTANAEXT Activity Type Activity Date Activity User E-sign Co-sign Detail Recorded Client Recorded Date Recorded By Document 11/27/24 08:05 KW [id number] 11/27/24 08:10 11/27/24 08:05 WC - Today's Visit Information Type of service Follow-up Visit (Physician/METAL FRAMER ) Arrival Mode Ambulatory, Crutches Patient Identification Verified (Name & Yes ) Height and Weight Body Mass Index (BMI) 28.3 BMI Classification Overweight Vital Signs Temperature (97.8 F-99.1 F) 96.9 F L Temperature Source Temporal Pulse Rate (60-100) 78 Pulse Location Monitor Respiratory Rate (12-18) 18 Respiratory rate source Observation Oxygen Delivery Method Room Air Blood Pressure (90/60-120/80) 146/97 H Blood Pressure Mean (mm Hg) 113 Source Monitor Position Semi-Fowlers Blood Pressure Location Left Arm History Since Last Visit- (Skip if this is Patient's initial visit) Have you changed medications since your No last visit? Any new allergies or adverse reactions No Had a fall/change in ADL's that may No increase risk of falls Signs or symptoms of abuse and/or No neglect since last visit Have you been in the hospital since your No last visit? Has dressing in place as prescribed Yes Has compression in place as prescribed Yes Has offloadiing in place as prescribed Yes Experienced any changes in pain level or No management Left Footwear Regular Shoe Right Footwear Removable Cast Walker/Walking Boot Pain Scale: 0-10 Numeric Is Patient Pain Free? Yes WC - Nurse 1 - General Ulcer Measurement Start: 11/27/24 08:04 Freq: Status: Active Protocol: Activity Type Activity Date Activity User E-sign Co-sign Detail Recorded Client Recorded Date Recorded By Document 11/27/24 08:05 KW [id number] 11/27/24 08:10 11/27/24 08:05 Wound Center Nurse 1 #1 rt plantar ft -Current Size (cm) - Length 0.6 -Current Size (cm) - Width 1.6 -Current Size (cm) - Depth 0.2 -Total Square Cm 0.96 -Exudate Amt Small -Exudate Type Serosanguineous -Wound Margin Thickened -Granulation Amt Large (67-100%) -Granulation Quality Red -Texture (Wendy-wound Skin Appearance) Assessed,Callus -Moisture (Wendy-wound Skin Appearance) Assessed -Color (Wendy-wound Skin Appearance) Assessed -Ulcer Cleansing Rinsed/ Irrigated with Saline -Foul Odor after Cleansing No -Anesthetic Used 5% Lidocaine Gel WC - Nurse 2 - General Ulcer CM Notes Start: 11/27/24 08:04 Freq: Status: Active Protocol: Activity Type Activity Date Activity User E-sign Co-sign Detail Recorded Client Recorded Date Recorded By Document 11/27/24 09:00 DS [id number] 11/27/24 09:07 DS 11/27/24 09:00 Wound Center Nurse 2 -Time 09:00 -Correct Patient Yes -Correct Side, Site, Position Yes -Correct Procedure Yes -Procedure Performed Yes -Type of Procedure Debridement -Clinical Debridement Subcutaneous -Tissue Removed Subcutaneous -Post Debridement (cm) - Length 1.5 -Post Debridement (cm) - Width 1.0 -Post Debridement (cm) - Depth 0.3 -Total Square (Post) (cm) 1.50 -Area of Debridement (cm) - Length 1.5 -Area of Debridement (cm) - Width 1.0 -Total Square (Area) (cm) 1.50 -Tunneling No -Undermining/Tunneling No -Circular Undermining No -Wound/Ulcer Outcome Not Healed -Ulcer Cleansing Wound Cleanser -Foul Odor after Cleansing No -Bioengineered Tissue No -Bleeding Controlled with Pressure -Treatment Response Procedure Tolerated Well -Debridement - Subq, 1st 20sq cm Yes Pain Scale: 0-10 Numeric Is Patient Pain Free? Yes Assessment/Plan Assessment/Plan (1) Non-pressure chronic ulcer of other part of right foot with fat layer exposed: CODE(S): L97.512 - Non-pressure chronic ulcer of other part of right foot with fat layer exposed PLAN: Exam performed. Radiographs negative for osteomyelitis Lab work negative for systemic infection Patient does have elevated blood glucose which is likely limiting healing Patient is awaiting arterial studies on 29 November - still awaiting Will likely plan for skin substitute grafting with total contact cast due to plantar foot wound - patient figuring out work situaiton Today right plantar first MPJ wound was excisionally debrided down to including level of subcutaneous tissue of all nonviable tissue using a tissue nipper and 15 blade. This is obtained with light compression. Topical anesthesia used. Pre and postdebridement measurements document nursing notes. Plan for daily wound cleansing and Flora dressing Offload with cam boot Follow-up week Contact our office any signs symptoms infection develop. patient is high risk for partial 1st ray amputation vs TMA (2) Type 2 diabetes mellitus with diabetic polyneuropathy: CODE(S): E11.42 - Type 2 diabetes mellitus with diabetic polyneuropathy QUALIFIERS: Diabetes mellitus computer terminal operator insulin use: with computer terminal operator use Qualified Code(s): E11.42 - Type 2 diabetes mellitus with diabetic polyneuropathy; Z79.4 - long term (current) use of insulin
--- NOTE | 2024-11-29 07:46 | ART_ITS ---
Reason For Study Reason For Study: Diabetic foot ulcer Procedure A bilateral lower extremity continuous wave Doppler with analog waveform analysis,segmental pressures,and ankle brachial indexes without exercise. Left Segmental Pressures Left brachial= 127mmHg. Left posterior tibial artery = 159mmHg. Left dorsalis pedis artery = 160mmHg. Left digit = 152 mmHg. The left dorsalis pedis waveforms are triphasic. The left posterior tibial artery waveforms are triphasic. Right Segmental Pressures Right brachial= 120mmHg. Right posterior tibial artery = 163mmHg. Right dorsalis pedis artery = 169mmHg. Right digit = 130 mmHg. The right dorsalis pedis waveforms are triphasic. The right posterior tibial artery waveforms are triphasic. Indices The right ankle brachial index by the dorsalis pedis is 1.33. The right ankle brachial index by the posterior tibial artery is 1.28. The right digital-brachial index is 1.02. The left ankle brachial index by the dorsalis pedis is 1.26. The left ankle brachial index by the posterior tibial artery is 1.25. The left digital-brachial index is 1.20. VL/Lower Ext Art Exam w/o Exercis Interpretation Summary Triphasic Doppler waveforms are noted at ankle level bilaterally. Pulse-volume recordings appear satisfactory at all levels bilaterally. Resting ankle-brachial indices are normal bilaterally. Digi valdo-brachial indices are normal bilaterally. There is no evidence of significant arterial occlusive disease in the lower ext remities bilaterally. Ordering Physician: Leonardo Jacob Referring Physician: Ester Valencia M.D. Performed By: Radha Jordan RVT
[2024-12-18 08:04] VITALS: BP 166/106; PULSE 79; RESP 18; TEMP 36.4; BMI 28.3
--- NOTE | 2024-12-18 09:48 | PN.PCM_ITS ---
History of Present Illness Date of Service: 12/18/24 Chief Complaint: Right plantar foot ulceration History of Wound: This is a 49-year-old diabetic male who presented with an ulceration on the plantar surface of his right foot. The patient was referred by Dr. Mike Elizondo, a local Washer Engineer. In June 2024, Dr. Elizondo excised a large callus from the plantar aspect of the patient's right foot. Treatment of the residual defect included daily Epsom salts soaks, and the use of Silvadene topically. The patient has been using a cam walker boot and crutches for ambulation. 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 The patient takes Janumet for his diabetes. His most recent available hemoglobin A1c was 13.5 in 2018. His primary care physician is Dr. Ester Valencia. Progress of Wound: no changes today Objective Data Objective Data Vital Signs: Vital Signs Temp Pulse Resp BP O2 Del Method 97.5 F L 79 18 166/106 H Room Air 12/18/24 08:04 12/18/24 08:04 12/18/24 08:04 12/18/24 08:04 12/18/24 08:04 Oxygen Delivery Method Room Air Weight: 94.801 kg Body Mass Index (BMI) 28.3 Physical Exam Narrative Vascular: Dorsalis pedis posterior tibial pulses palpable for the left foot. Digital hair growth noted. Some edema noted to the left foot. Neurologic: Absent light touch protective sensation of bilateral feet. Dermatologic: Full-thickness wound noted to the plantar first metatarso phalangeal joint right foot. Wound demonstrates some undermining with hyperkeratosis to periwound area with clean granular base. No deep probing. Pre and postdebridement measurements document nursing notes. No acute signs of infection noted today. Musculoskeletal: Rigidly plantarflexed first ray right foot. Patient has history of foot reconstruction when he was a kid believe this created a p lantarflexed first ray which is now causing ulceration to the plantar first MPJ due to setting of diabetic neuropathy. Const alert and oriented x3 Debridement Note Debridement Note Post-Debridement Measurements and Additional Note: Post-Debridement Measurements/Treatment VARUN - Nurse 1 - General Ulcer Assessment Start: 11/27/24 08:04 Freq: Status: Active Protocol: RIOGEXJadyn Activity Type Activity Date Activity User E-sign Co-sign Detail Recorded Client Recorded Date Recorded By Document 11/27/24 08:05 KW [id number] 11/27/24 08:10 KW Document 12/18/24 08:04 KW [id number] 12/18/24 08:08 KW 11/27/24 12/18/24 08:05 08:04 - Today's Visit Information Type of service Follow-up Visit Follow-up Visit (Physician/OFFICE MACHINE INSPECTOR (Physician/OFFICE MACHINE INSPECTOR ) ) Arrival Mode Ambulatory, Ambulatory, Crutches Crutches Patient Identification Verified (Name & Yes Yes ) Height and Weight Body Mass Index (BMI) 28.3 28.3 BMI Classification Overweight Overweight Vital Signs Temperature (97.8 F-99.1 F) 96.9 F L 97.5 F L Temperature Source Temporal Temporal Pulse Rate (60-100) 78 79 Pulse Location Monitor Monitor Respiratory Rate (12-18) 18 18 Respiratory rate source Observation Observation Oxygen Delivery Method Room Air Room Air Blood Pressure (90/60-120/80) 146/97 H 166/106 H Blood Pressure Mean (mm Hg) 113 126 Source Monitor Monitor Position Semi-Fowlers Semi-Fowlers Blood Pressure Location Left Arm Left Arm History Since Last Visit- (Skip if this is Patient's initial visit) Have you changed medications since your No No last visit? Any new allergies or adverse reactions No No Had a fall/change in ADL's that may No No increase risk of falls Signs or symptoms of abuse and/or No No neglect since last visit Have you been in the hospital since your No No last visit? Has dressing in place as prescribed Yes Yes Has compression in place as prescribed Yes N/A Has offloadiing in place as prescribed Yes Yes Experienced any changes in pain level or No No management Left Footwear Regular Shoe Regular Shoe Right Footwear Removable Cast Removable Cast Walker/Walking Walker/Walking Boot Boot Pain Scale: 0-10 Numeric Is Patient Pain Free? Yes Yes - Nurse 1 - General Ulcer Measurement Start: 11/27/24 08:04 Freq: Status: Active Protocol: Activity Type Activity Date Activity User E-sign Co-sign Detail Recorded Client Recorded Date Recorded By Document 11/27/24 08:05 KW [id number] 11/27/24 08:10 KW Document 12/18/24 08:04 KW [id number] 12/18/24 08:08 KW 11/27/24 12/18/24 08:05 08:04 Wound Center Nurse 1 #1 rt plantar ft -Current Size (cm) - Length 0.6 0.8 -Current Size (cm) - Width 1.6 1.5 -Current Size (cm) - Depth 0.2 0.4 -Total Square Cm 0.96 1.20 -Date of Last Picture (Recall this 12/18/24 field) -Circular Undermining Yes -Exudate Amt Small Small -Exudate Type Serosanguineous Serosanguineous -Wound Margin Thickened Thickened -Granulation Amt Large (67-100%) Large (67-100%) -Granulation Quality Red Many,Red -Texture (Wendy-wound Skin Appearance) Assessed,Callus Assessed,Callus -Moisture (Wendy-wound Skin Appearance) Assessed Assessed -Color (Wendy-wound Skin Appearance) Assessed Assessed -Temperature (Wendy-wound Skin No Abnormality Appearance) (Pt Warm) -Tenderness on Palpation (Wendy-wound No Skin Appearance) -Ulcer Cleansing Rinsed/ Rinsed/ Irrigated with Irrigated with Saline Saline -Foul Odor after Cleansing No No -Anesthetic Used 5% Lidocaine 5% Lidocaine Gel Gel WC - Nurse 2 - General Ulcer CM Notes Start: 11/27/24 08:04 Freq: Status: Active Protocol: Activity Type Activity Date Activity User E-sign Co-sign Detail Recorded Client Recorded Date Recorded By Document 11/27/24 09:00 DS [id number] 11/27/24 09:07 DS Document 12/18/24 08:28 JF [id number] 12/18/24 08:30 JF 11/27/24 12/18/24 09:00 08:28 Wound Center Nurse 2 #1 rt plantar ft -Time 09:00 08:28 -Correct Patient Yes Yes -Correct Side, Site, Position Yes Yes -Correct Procedure Yes Yes -Procedure Performed Yes Yes -Type of Procedure Debridement Debridement -Clinical Debridement Subcutaneous Subcutaneous -Tissue Removed Subcutaneous Subcutaneous -Post Debridement (cm) - Length 1.5 1.0 -Post Debridement (cm) - Width 1.0 2.0 -Post Debridement (cm) - Depth 0.3 0.5 -Total Square (Post) (cm) 1.50 2.00 -Area of Debridement (cm) - Length 1.5 1.0 -Area of Debridement (cm) - Width 1.0 2.0 -Total Square (Area) (cm) 1.50 2.00 -Tunneling No No -Undermining/Tunneling No No -Circular Undermining No No -Wound/Ulcer Outcome Not Healed Not Healed -Ulcer Cleansing Wound Cleanser Rinsed/ Irrigated with Saline -Foul Odor after Cleansing No No -Bioengineered Tissue No No -Bleeding Controlled with Pressure Pressure -Treatment Response Procedure Procedure Tolerated Well Tolerated Well -Offloading Yes -Type of Offloading Camwalker -Debridement - Subq, 1st 20sq cm Yes Yes Pain Scale: 0-10 Numeric Is Patient Pain Free? Yes Yes - Nurse 3 - General Ulcer D/C NN Start: 11/27/24 08:04 Freq: Status: Active Protocol: Activity Type Activity Date Activity User E-sign Co-sign Detail Recorded Client Recorded Date Recorded By Document 11/27/24 09:22 KW [id number] 11/27/24 09:22 KW Document 12/18/24 08:54 KW [id number] 12/18/24 08:54 KW 11/27/24 12/18/24 09:22 08:54 Wound Care Center Nurse 3 #1 rt plantar ft -Primary Dressing Applied Promogran Promogran -Primary Dressing Covered/Secured with Dry Gauze & Dry Gauze & Roll Gauze, Roll Gauze, Secured with Secured with Tape Tape -Promogran 1 1 Pain Scale: 0-10 Numeric Is Patient Pain Free? Yes Yes - Visit Discharge Discharge Condition Stable Stable Ambulatory Status Ambulatory, Ambulatory Crutches Transportation Private Auto Private Auto Medication Reconcilliation completed & No No provided to patient/care provider Clinical Summary of Care Provided Yes Yes Assessment/Plan Assessment/Plan (1) Non-pressure chronic ulcer of other part of right foot with fat layer exposed: CODE(S): L97.512 - Non-pressure chronic ulcer of other part of right foot with fat layer exposed PLAN: Exam performed. Plan of care discussed with patient in great detail today. Due to chronic nonhealing plantar foot ulceration the site was debrided excisionally down to including level of subcutaneous tissue of all nonviable tissue 5 mm dermal curette and 15 blade. Patient tolerated procedure well. Hemostasis obtained with light compression. Pre and postdebridement measurem ents document nursing notes. Patient being dressed daily continue current dressing changes. Patient offloading with cam boot. Will plan for total contact casting with advanced wound care grafting to allow for definitive wound closure. Discussed tighter blood glucose regulation. Patient is to get off work for this time. Until definitive wound closing to prevent any future life or limb threatening infection. Follow-up in 1 week for this treatment. (2) Type 2 diabetes mellitus with diabetic polyneuropathy: CODE(S): E11.42 - Type 2 diabetes mellitus with diabetic polyneuropathy QUALIFIERS: Diabetes mellitus predatory animal exterminator insulin use: with predatory animal exterminator use Qualified Code(s): E11.42 - Type 2 diabetes mellitus with diabetic polyneuropathy; Z79.4 - tank terminal gauger (current) use of insulin
== END 2024-12-24 23:59 | disposition home or self-care (01) ==
LOC: WC 08:00
PROVIDERS: PCP Family Medicine; Referring Provider Podiatrist Foot & Ankle Surgery; Visit Provider Surgery
DX: E11.621 Type 2 diabetes mellitus with foot ulcer (principal); L97.412 Non-pressure chronic ulcer of right heel and midfoot with fat layer exposed; E11.42 Type 2 diabetes mellitus with diabetic polyneuropathy; R60.0 Localized edema; Z79.84 Long term (current) use of oral hypoglycemic drugs
CPT/HCPCS: 11042; 93923

== ENCOUNTER 2025-01-22 08:15 | Outpatient (RCR) | payer OTHER, SELFPAY ==
[2024-12-25 00:29] VITALS: BP 166/106; PULSE 79; RESP 18; TEMP 36.4; BMI 28.3
[2024-12-25 08:07] VITALS: BP 167/109; PULSE 84; RESP 18; TEMP 36.2; BMI 28.3
--- NOTE | 2024-12-25 09:56 | PCM.WC.PN ---
History of Present Illness Date of Service: 12/25/24 Chief Complaint: Right plantar foot ulceration History of Wound: This is a 49-year-old diabetic male who presented with an ulceration on the plantar surface of his right foot. The patient was referred by Dr. Mike Elizondo, a local Dedicated Local Truck Driver. In June 2024, Dr. Elizondo excised a large callus from the plantar aspect of the patient's right foot. Treatment of the residual defect included daily Epsom salts soaks, and the use of Silvadene topically. The patient has been using a cam walker boot and crutches for ambulation. 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 The patient takes Janumet for his diabetes. His most recent available hemoglobin A1c was 13.5 in 2018. His primary care physician is Dr. Ester Valencia. Objective Data Objective Data Vital Signs: Vital Signs Temp Pulse Resp BP O2 Del Method 97.2 F L 84 18 167/109 H Room Air 12/25/24 08:07 12/25/24 08:07 12/25/24 08:07 12/25/24 08:07 12/25/24 08:07 Oxygen Delivery Method Room Air Weight: 94.801 kg Body Mass Index (BMI) 28.3 Physical Exam Narrative Vascular: Dorsalis pedis posterior tibial pulses palpable for the left foot. Digital hair growth noted. Some edema noted to the left foot. Neurologic: Absent light touch protective sensation of bilateral feet. Dermatologic: Full-thickness wound noted to the plantar first metatarsophalangeal joint right foot. Wound demonstrates some undermining with hyperkeratosis to periwound area with clean granular base. No deep probing. Pre and postdebridement measurements document nursing notes. No acute signs of infection noted today. Musculoskeletal: Rigidly plantarflexed first ray right foot. Patient has history of foot reconstruction when he was a kid believe this created a plantarflexed first ray which is now causing ulceration to the plantar first MPJ due to setting of diabetic neuropathy. Const alert and oriented x3 Debridement Note Debridement Note Post-Debridement Measurements and Additional Note: Post-Debridement Measurements/Treatment VARUN - Nurse 1 - General Ulcer Assessment Start: 12/25/24 08:07 Freq: Status: Active Protocol: ROGER Activity Type Activity Date Activity User E-sign Co-sign Detail Recorded Client Recorded Date Recorded By Document 04/01/25 08:07 KW [id number] 12/25/24 08:11 KW 12/25/24 08:07 WC - Today's Visit Information Type of service Follow-up Visit (Physician/SENIOR BENEFITS MANAGER ) Arrival Mode Ambulatory, Crutches Patient Identification Verified (Name & Yes ) Height and Weight Body Mass Index (BMI) 28.3 BMI Classification Overweight Vital Signs Temperature (97.8 F-99.1 F) 97.2 F L Temperature Source Temporal Pulse Rate (60-100) 84 Pulse Location Monitor Respiratory Rate (12-18) 18 Respiratory rate source Observation Oxygen Delivery Method Room Air Blood Pressure (90/60-120/80) 167/109 H Blood Pressure Mean (mm Hg) 128 Source Monitor Position Semi-Fowlers Blood Pressure Location Left Arm History Since Last Visit- (Skip if this is Patient's initial visit) Have you changed medications since your No last visit? Any new allergies or adverse reactions No Had a fall/change in ADL's that may No increase risk of falls Signs or symptoms of abuse and/or No neglect since last visit Have you been in the hospital since your No last visit? Has dressing in place as prescribed Yes Has compression in place as prescribed N/A Has offloadiing in place as prescribed Yes Experienced any changes in pain level or No management Left Footwear Regular Shoe Right Footwear Regular Shoe Pain Scale: 0-10 Numeric Is Patient Pain Free? Yes - Nurse 1 - General Ulcer Measurement Start: 12/25/24 08:07 Freq: Status: Active Protocol: Activity Type Activity Date Activity User E-sign Co-sign Detail Recorded Client Recorded Date Recorded By Document 12/25/24 08:07 KW [id number] 12/25/24 08:11 KW 12/25/24 08:07 Wound Center Nurse 1 #1 rt plantar ft -Current Size (cm) - Length 1.1 -Current Size (cm) - Width 1.6 -Current Size (cm) - Depth 0.2 -Total Square Cm 1.76 -Date of Last Picture (Recall this 12/25/24 field) -Exudate Amt Small -Exudate Type Serosanguineous -Wound Margin Distinct, Outline Attached -Granulation Amt Large (67-100%) -Granulation Quality Red -Texture (Wendy-wound Skin Appearance) Assessed,Callus -Moisture (Wendy-wound Skin Appearance) Assessed, Maceration -Color (Wendy-wound Skin Appearance) Assessed -Temperature (Wendy-wound Skin No Abnormality Appearance) (Pt Warm) -Tenderness on Palpation (Wendy-wound No Skin Appearance) -Ulcer Cleansing Soap and Water -Foul Odor after Cleansing No -Anesthetic Used 5% Lidocaine Gel VARUN - Nurse 2 - General Ulcer CM Notes Start: 12/25/24 08:07 Freq: Status: Active Protocol: Activity Type Activity Date Activity User E-sign Co-sign Detail Recorded Client Recorded Date Recorded By Document 12/25/24 08:51 DS [id number] 12/25/24 08:53 DS 12/25/24 08:51 Wound Center Nurse 2 -Time 08:51 -Correct Patient Yes -Correct Side, Site, Position Yes -Correct Procedure Yes -Procedure Performed Yes -Type of Procedure Debridement -Clinical Debridement Subcutaneous -Tissue Removed Subcutaneous -Post Debridement (cm) - Length 1.3 -Post Debridement (cm) - Width 1.1 -Post Debridement (cm) - Depth 0.1 -Total Square (Post) (cm) 1.43 -Area of Debridement (cm) - Length 1.3 -Area of Debridement (cm) - Width 1.1 -Total Square (Area) (cm) 1.43 -Tunneling No -Undermining/Tunneling No -Circular Undermining No -Wound/Ulcer Outcome Not Healed -Ulcer Cleansing Rinsed/ Irrigated with Saline -Foul Odor after Cleansing No -Bioengineered Tissue No -Bleeding Controlled with Pressure -Treatment Response Procedure Tolerated Well -Type of Offloading Total Contact Cast (TCC) - Right ($) -Debridement - Subq, 1st 20sq cm Yes Pain Scale: 0-10 Numeric Is Patient Pain Free? Yes - Nurse 3 - General Ulcer D/C NN Start: 12/25/24 08:07 Freq: Status: Active Protocol: Activity Type Activity Date Activity User E-sign Co-sign Detail Recorded Client Recorded Date Recorded By Document 12/25/24 09:06 KW [id number] 12/25/24 09:08 KW 12/25/24 09:06 Wound Care Center Nurse 3 #1 rt plantar ft -Ulcer Cleansing Rinsed/ Irrigated with Saline -Primary Dressing Applied Optilok 5x5 1/2 ,Silvercel -Other Dressing betadine around edges -Primary Dressing Covered/Secured with Dry Gauze & Roll Gauze, Secured with Tape -Optilok 5x5 1/2 1 -Silvercel 1 Pain Scale: 0-10 Numeric Is Patient Pain Free? Yes WC - Visit Discharge Discharge Condition Stable Ambulatory Status Ambulatory, Crutches Transportation Private Auto Medication Reconcilliation completed & No provided to patient/care provider Clinical Summary of Care Provided Yes Assessment/Plan Assessment/Plan (1) Non-pressure chronic ulcer of other part of right foot with fat layer exposed: CODE(S): L97.512 - Non-pressure chronic ulcer of other part of right foot with fat layer exposed PLAN: Exam performed. Plan of care discussed with patient in great detail today. Due to chronic nonhealing plantar foot ulceration the site was debrided excisionally down to including level of subcutaneous tissue of all nonviable tissue 5 mm dermal curette and 15 blade. Patient tolerated procedure well. Hemostasis obtained with light compression. Pre and postdebridement measurements document nursing notes. Patient being dressed daily continue current dressing changes. Patient offloading with cam boot. Today total contact cast was applied to the right lower extremity. Patient is to get off work for this time. Until definitive wound closing to prevent any future life or limb threatening infection. Follow-up in 1 week for this treatment. (2) Type 2 diabetes mellitus with diabetic polyneuropathy: CODE(S): E11.42 - Type 2 diabetes mellitus with diabetic polyneuropathy QUALIFIERS: Diabetes mellitus termite exterminator helper insulin use: with [facility] use Qualified Code(s): E11.42 - Type 2 diabetes mellitus with diabetic polyneuropathy; Z79.4 - [facility] (current) use of insulin
--- NOTE | 2024-12-26 11:20 | WC ---
PHOTO 12/25/24 RIGHT 1ST MET HEAD
[2025-01-01 08:10] VITALS: BP 167/95; PULSE 80; RESP 18; TEMP 35.9; BMI 28.3
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
--- NOTE | 2025-01-02 08:34 | WC ---
PHOTO 01/02/25 RIGHT FOOT
[2025-01-08 08:09] VITALS: BP 137/86; PULSE 78; RESP 18; TEMP 35.5; BMI 28.3
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
--- NOTE | 2025-01-09 09:50 | WC ---
PHOTO 01/08/25 RIGHT PLANTAR
[2025-01-15 08:08] VITALS: BP 109/89; PULSE 87; RESP 16; TEMP 36.1; BMI 28.3
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
--- NOTE | 2025-01-17 08:51 | WC ---
PHOTO 01/16/25 RIGHT PLANTAR FOOT
[2025-01-22 08:15] VITALS: BP 131/89; PULSE 83; RESP 18; TEMP 35.8; BMI 28.3
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
== END 2025-01-23 23:59 | disposition home or self-care (01) ==
LOC: WC 08:15
PROVIDERS: PCP Family Medicine; Referring Provider Podiatrist Foot & Ankle Surgery; Visit Provider Podiatrist
DX: E11.621 Type 2 diabetes mellitus with foot ulcer (principal); L97.412 Non-pressure chronic ulcer of right heel and midfoot with fat layer exposed; E11.42 Type 2 diabetes mellitus with diabetic polyneuropathy; L03.115 Cellulitis of right lower limb; Z79.84 Long term (current) use of oral hypoglycemic drugs
CPT/HCPCS: 11042; 15275; 29445; 87070; 87075; 87077; 87186; 87205; Q4186

== ENCOUNTER 2025-02-12 08:00 | Outpatient (RCR) | payer OTHER, SELFPAY ==
[2025-01-24 00:31] VITALS: BP 131/89; PULSE 83; RESP 18; TEMP 35.8; BMI 28.3
[2025-01-29 08:13] VITALS: BP 161/102; PULSE 85; RESP 16; TEMP 35.8; BMI 28.3
--- NOTE | 2025-01-29 10:25 | PN.PCM_ITS ---
History of Present Illness Date of Service: 01/29/25 Chief Complaint: Right plantar foot ulceration History of Wound: This is a 49-year-old diabetic male who presented with an ulceration on the plantar surface of his right foot. The patient was referred by Dr. Mike Elizondo, a local [employer]. In June 2024, Dr. Elizondo excised a large callus from the plantar aspect of the patient's right foot. Treatment of the residual defect included daily Epsom salts soaks, and the use of Silvadene topically. The patient has been using a cam walker boot and crutches for ambulation. 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 The patient takes Janumet for his diabetes. His most recent available hemoglobin A1c was 13.5 in 2018. His primary care physician is Dr. Ester Valencia. Objective Data Objective Data Vital Signs: Vital Signs Temp Pulse Resp BP O2 Del Method 96.5 F L 85 16 161/102 H Room Air 01/29/25 08:13 01/29/25 08:13 01/29/25 08:13 01/29/25 08:13 01/29/25 08:13 Oxygen Delivery Method Room Air Weight: 94.801 kg Body Mass Index (BMI) 28.3 Physical Exam Narrative Neurovascular status unchanged. Full-thickness wound noted to the plantar aspect of the right first MPJ mild periwound maceration erythema edema. Some malodor noted. No deep probing undermining noted. Stable granular base noted postdebridement. Pre and postdebridement measurements document nursing notes. 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 Const alert and oriented x3 Debridement Note Debridement Note Post-Debridement Measurements and Additional Note: Post-Debridement Measurements/Treatment WC - Nurse 1 - General Ulcer Assessment Start: 01/29/25 08:13 Freq: Status: Active Protocol: ROGER Activity Type Activity Date Activity User E-sign Co-sign Detail Recorded Client Recorded Date Recorded By Document 01/29/25 08:13 KW [id number] 01/29/25 08:16 KW 01/29/25 08:13 VARUN - Today's Visit Information Type of service Follow-up Visit (Physician/[employer] ) Arrival Mode Ambulatory, Crutches Patient Identification Verified (Name & Yes ) Height and Weight Body Mass Index (BMI) 28.3 BMI Classification Overweight Vital Signs Temperature (97.8 F-99.1 F) 96.5 F L Temperature Source Temporal Pulse Rate (60-100) 85 Pulse Location Monitor Respiratory Rate (12-18) 16 Respiratory rate source Observation Oxygen Delivery Method Room Air Blood Pressure (90/60-120/80) 161/102 H Blood Pressure Mean (mm Hg) 121 Source Monitor Position Semi-Fowlers Blood Pressure Location Left Arm History Since Last Visit- (Skip if this is Patient's initial visit) Have you changed medications since your No last visit? Any new allergies or adverse reactions No Had a fall/change in ADL's that may No increase risk of falls Signs or symptoms of abuse and/or No neglect since last visit Have you been in the hospital since your No last visit? Has dressing in place as prescribed Yes Has compression in place as prescribed Yes Has offloadiing in place as prescribed Yes Experienced any changes in pain level or No management Left Footwear Regular Shoe Right Footwear Removable Cast Walker/Walking Boot Pain Scale: 0-10 Numeric Is Patient Pain Free? Yes WC - Nurse 1 - General Ulcer Measurement Start: 01/29/25 08:13 Freq: Status: Active Protocol: Activity Type Activity Date Activity User E-sign Co-sign Detail Recorded Client Recorded Date Recorded By Document 01/29/25 08:13 LEANN [id number] 01/29/25 08:16 LEANN 01/29/25 08:13 Wound Center Nurse 1 #1 rt plantar ft -Current Size (cm) - Length 0.1 -Current Size (cm) - Width 0.1 -Current Size (cm) - Depth 0 -Total Square Cm 0.01 -Date of Last Picture (Recall this 01/29/25 field) -Exudate Amt Small -Exudate Type Serosanguineous -Wound Margin Distinct, Outline Attached -Texture (Wendy-wound Skin Appearance) Assessed,Callus -Moisture (Wendy-wound Skin Appearance) Assessed -Color (Wendy-wound Skin Appearance) Assessed -Temperature (Wendy-wound Skin No Abnormality Appearance) (Pt Warm) -Tenderness on Palpation (Wendy-wound No Skin Appearance) -Ulcer Cleansing Soap and Water -Foul Odor after Cleansing No -Anesthetic Used 5% Lidocaine Gel WC - Nurse 2 - General Ulcer CM Notes Start: 01/29/25 08:13 Freq: Status: Active Protocol: Activity Type Activity Date Activity User E-sign Co-sign Detail Recorded Client Recorded Date Recorded By Document 01/29/25 08:32 DALIA [id number] 01/29/25 08:38 JF 01/29/25 08:32 Wound Center Nurse 2 -Time 08:32 -Correct Patient Yes -Correct Side, Site, Position Yes -Correct Procedure Yes -Procedure Performed Yes -Type of Procedure Debridement -Clinical Debridement Subcutaneous -Tissue Removed Subcutaneous -Post Debridement (cm) - Length 0.5 -Post Debridement (cm) - Width 0.2 -Post Debridement (cm) - Depth 0.1 -Total Square (Post) (cm) 0.10 -Area of Debridement (cm) - Length 0.5 -Area of Debridement (cm) - Width 0.2 -Total Square (Area) (cm) 0.10 -Tunneling No -Undermining/Tunneling No -Circular Undermining No -Wound/Ulcer Outcome Not Healed -Ulcer Cleansing Rinsed/ Irrigated with Saline -Foul Odor after Cleansing No -Bioengineered Tissue Yes -Type of Bioengineered Tissue Epifix 18mm Disc -Expiration Date 07/27/29 -Product Lot Number [id number] -Percent Used 100 -Lot number of Saline Used [id number] -Bleeding Controlled with Pressure -Treatment Response Procedure Tolerated Well -Offloading Yes -Type of Offloading Camwalker -Assistive Device(s) Crutches -Debridement - Subq, 1st 20sq cm No -Apply Skin Sub - 1st 25 sq cm - Feet 1 -Epifix 18mm Disc Application 1-4 3 Pain Scale: 0-10 Numeric Is Patient Pain Free? Yes - Nurse 3 - General Ulcer D/C NN Start: 01/29/25 08:13 Freq: Status: Active Protocol: Activity Type Activity Date Activity User E-sign Co-sign Detail Recorded Client Recorded Date Recorded By Document 01/29/25 08:45 LEANN [id number] 01/29/25 08:45 KW 01/29/25 08:45 Wound Care Center Nurse 3 #1 rt plantar ft -Primary Dressing Applied Silicone Border Foam 4x4 -Silicone Border Foam 4x4 2 Pain Scale: 0-10 Numeric Is Patient Pain Free? 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 Wound appears slightly decreased. Right foot wound was excisionally debrided down to including level of subcutaneous tissue of all nonviable tissue using a 5 mm dermal curette. Hemostasis obtained with light compression. Topical anesthesia used. Patient tolerated procedure well. Pre and postdebridement measurements document nursing notes. cultures reviewed with patient Previous wound cultures reviewed Due to new blister a 7-day course of augmentin 875mg BID was prescribed Today a 18mm EpiFix graft was applied to the plantar aspect of the first MPJ, entire graft used, no waste. Overlying graft was stabilized with wound veil and Steri-Strips. Additionally silver alginate was applied to the wound veil as well as 4 x 4's and a gauze wrap. Patient will maintain nonweightbearing assisted by crutches Patient follow-up in 1 week (2) Non-pressure chronic ulcer of other part of right foot with fat layer exposed: CODE(S): L97.512 - Non-pressure chronic ulcer of other part of right foot with fat layer exposed (3) Cellulitis of right lower limb: CODE(S): L03.115 - Cellulitis of right lower limb
--- NOTE | 2025-01-31 10:01 | WC ---
PHOTO 01/29/25 RIGHT PLANTAR
[2025-02-05 08:18] VITALS: BP 162/90; PULSE 81; RESP 14; TEMP 36.3; BMI 28.3
--- NOTE | 2025-02-05 09:00 | PCM.WC.PN ---
History of Present Illness Date of Service: 02/05/25 Chief Complaint: Right plantar foot ulceration History of Wound: This is a 49-year-old diabetic male who presented with an ulceration on the plantar surface of his right foot. The patient was referred by Dr. Mike Elizondo, a local [employer]. In June 2024, Dr. Elizondo excised a large callus from the plantar aspect of the patient's right foot. Treatment of the residual defect included daily Epsom salts soaks, and the use of Silvadene topically. The patient has been using a cam walker boot and crutches for ambulation. 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 The patient takes Janumet for his diabetes. His most recent available hemoglobin A1c was 13.5 in 2018. His primary care physician is Dr. Ester Valencia. Progress of Wound: No changes today Objective Data Objective Data Vital Signs: Vital Signs Temp Pulse Resp BP O2 Del Method 97.4 F L 81 14 162/90 H Room Air 02/05/25 08:18 02/05/25 08:18 02/05/25 08:18 02/05/25 08:18 01/29/25 08:13 Oxygen Delivery Method Room Air Weight: 94.801 kg Body Mass Index (BMI) 28.3 Physical Exam Narrative Neurovascular status unchanged. Full-thickness wound noted to the plantar aspect of the right first MPJ mild periwound maceration erythema edema. Some malodor noted. No deep probing undermining noted. Stable granular base noted postdebridement. Pre and postdebridement measurements document nursing notes. 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 Const alert and oriented x3 Debridement Note Debridement Note Post-Debridement Measurements and Additional Note: Post-Debridement Measurements/Treatment WC - Nurse 1 - General Ulcer Assessment Start: 01/29/25 08:13 Freq: Status: Active Protocol: ROGER Activity Type Activity Date Activity User E-sign Co-sign Detail Recorded Client Recorded Date Recorded By Document 01/29/25 08:13 KW [id number] 01/29/25 08:16 KW Document 02/05/25 08:18 ML [id number] 02/05/25 08:22 ML 01/29/25 02/05/25 08:13 08:18 - Today's Visit Information Type of service Follow-up Visit Follow-up Visit (Physician/[employer] (Physician/[employer] ) ) Arrival Mode Ambulatory, Ambulatory Crutches Transfer Assistance None Patient Identification Verified (Name & Yes Yes ) Patient Requires Transmission-Based No Precautions Height and Weight Body Mass Index (BMI) 28.3 28.3 BMI Classification Overweight Overweight Vital Signs Temperature (97.8 F-99.1 F) 96.5 F L 97.4 F L Temperature Source Temporal Temporal Pulse Rate (60-100) 85 81 Pulse Location Monitor Monitor Respiratory Rate (12-18) 16 14 Respiratory rate source Observation Observation Oxygen Delivery Method Room Air Blood Pressure (90/60-120/80) 161/102 H 162/90 H Blood Pressure Mean (mm Hg) 121 114 Source Monitor Monitor Position Semi-Fowlers Sitting Blood Pressure Location Left Arm Right Arm History Since Last Visit- (Skip if this is Patient's initial visit) Have you changed medications since your No No last visit? Any new allergies or adverse reactions No No Had a fall/change in ADL's that may No No increase risk of falls Signs or symptoms of abuse and/or No No neglect since last visit Have you been in the hospital since your No No last visit? Has dressing in place as prescribed Yes Yes Has compression in place as prescribed Yes Yes Has offloadiing in place as prescribed Yes N/A Experienced any changes in pain level or No No management Left Footwear Regular Shoe Right Footwear Removable Cast Walker/Walking Boot Pain Scale: 0-10 Numeric Is Patient Pain Free? Yes Yes - Nurse 1 - General Ulcer Measurement Start: 01/29/25 08:13 Freq: Status: Active Protocol: Activity Type Activity Date Activity User E-sign Co-sign Detail Recorded Client Recorded Date Recorded By Document 01/29/25 08:13 KW [id number] 01/29/25 08:16 KW Document 02/05/25 08:18 ML [id number] 02/05/25 08:22 ML 01/29/25 02/05/25 08:13 08:18 Wound Center Nurse 1 #1 rt plantar ft -Current Size (cm) - Length 0.1 0.1 -Current Size (cm) - Width 0.1 0.1 -Current Size (cm) - Depth 0 0.1 -Total Square Cm 0.01 0.01 -Date of Last Picture (Recall this 01/29/25 field) -Exudate Amt Small Small -Exudate Type Serosanguineous Serosanguineous -Wound Margin Distinct, Outline Attached -Slough/Fibrin Yes -Necrosis Amt Small (1-33%) -Necrotic Tissue Type Adherent Slough -Texture (Wendy-wound Skin Appearance) Assessed,Callus Assessed -Moisture (Wendy-wound Skin Appearance) Assessed Assessed,Dry/ Scaly -Color (Wendy-wound Skin Appearance) Assessed Assessed -Temperature (Wendy-wound Skin No Abnormality No Abnormality Appearance) (Pt Warm) (Pt Warm) -Tenderness on Palpation (Wendy-wound No No Skin Appearance) -Ulcer Cleansing Soap and Water Rinsed/ Irrigated with Saline -Foul Odor after Cleansing No No -Anesthetic Used 5% Lidocaine 5% Lidocaine Gel Gel WC - Nurse 2 - General Ulcer CM Notes Start: 01/29/25 08:13 Freq: Status: Active Protocol: Activity Type Activity Date Activity User E-sign Co-sign Detail Recorded Client Recorded Date Recorded By Document 01/29/25 08:32 [id number] 01/29/25 08:38 Document 02/05/25 08:34 [id number] 02/05/25 08:36 01/29/25 02/05/25 08:32 08:34 Wound Center Nurse 2 #1 rt plantar ft -Time 08:32 08:35 -Correct Patient Yes Yes -Correct Side, Site, Position Yes No -Correct Procedure Yes Yes -Procedure Performed Yes -Type of Procedure Debridement -Clinical Debridement Subcutaneous -Tissue Removed Subcutaneous -Post Debridement (cm) - Length 0.5 0.1 -Post Debridement (cm) - Width 0.2 0.1 -Post Debridement (cm) - Depth 0.1 0.1 -Total Square (Post) (cm) 0.10 0.01 -Area of Debridement (cm) - Length 0.5 0.1 -Area of Debridement (cm) - Width 0.2 0.1 -Total Square (Area) (cm) 0.10 0.01 -Tunneling No No -Undermining/Tunneling No No -Circular Undermining No No -Wound/Ulcer Outcome Not Healed Not Healed -Ulcer Cleansing Rinsed/ Irrigated with Saline -Foul Odor after Cleansing No -Bioengineered Tissue Yes -Type of Bioengineered Tissue Epifix 18mm Disc -Expiration Date 07/27/29 -Product Lot Number [id number] -Percent Used 100 -Lot number of Saline Used [id number] -Bleeding Controlled with Pressure -Treatment Response Procedure Tolerated Well -Offloading Yes -Type of Offloading Camwalker -Assistive Device(s) Crutches -Debridement - Subq, 1st 20sq cm No -Apply Skin Sub - 1st 25 sq cm - Feet 1 -Epifix 18mm Disc Application 1-4 3 Pain Scale: 0-10 Numeric Is Patient Pain Free? Yes Yes - Nurse 3 - General Ulcer D/C NN Start: 01/29/25 08:13 Freq: Status: Active Protocol: Activity Type Activity Date Activity User E-sign Co-sign Detail Recorded Client Recorded Date Recorded By Document 01/29/25 08:45 KW [id number] 01/29/25 08:45 KW Document 02/05/25 08:51 RB [id number] 02/05/25 08:51 RB 01/29/25 02/05/25 08:45 08:51 Wound Care Center Nurse 3 #1 rt plantar ft -Ulcer Cleansing Rinsed/ Irrigated with Saline -Primary Dressing Applied Silicone Border Foam 4x4 -Other Dressing betadine -Primary Dressing Covered/Secured with Dry Gauze,Dry Gauze & Roll Gauze,Secured with Tape -Silicone Border Foam 4x4 2 Treatment Response Procedure Tolerated Well Pain Scale: 0-10 Numeric Is Patient Pain Free? 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 Wound nearly healed today Right foot wound was excisionally debrided down to including level of subcutaneous tissue of all nonviable tissue using a 5 mm dermal curette. Hemostasis obtained with light compression. Topical anesthesia used. Patient tolerated procedure well. Pre and postdebridement measurements document nursing notes. cultures reviewed with patient dress daily with betadine paint/DSD Patient will maintain nonweightbearing assisted by crutches Patient follow-up in 1 week (2) Non-pressure chronic ulcer of other part of right foot with fat layer exposed: CODE(S): L97.512 - Non-pressure chronic ulcer of other part of right foot with fat layer exposed (3) Cellulitis of right lower limb: CODE(S): L03.115 - Cellulitis of right lower limb
[2025-02-12 08:05] VITALS: BP 131/86; PULSE 81; RESP 18; TEMP 35.6; BMI 28.3
--- NOTE | 2025-02-12 09:24 | PN.PCM_ITS ---
History of Present Illness Date of Service: 02/12/25 Chief Complaint: Right plantar foot ulceration History of Wound: This is a 49-year-old diabetic male who presented with an ulceration on the plantar surface of his right foot. The patient was referred by Dr. Mike Elizondo, a local Division Traffic Superintendent. In June 2024, Dr. Elizondo excised a large callus from the plantar aspect of the patient's right foot. Treatment of the residual defect included daily Epsom salts soaks, and the use of Silvadene topically. The patient has been using a cam walker boot and crutches for ambulation. 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 The patient takes Janumet for his diabetes. His most recent available hemoglobin A1c was 13.5 in 2018. His primary care physician is Dr. Ester Valencia. Progress of Wound: No changes today Objective Data Objective Data Vital Signs: Vital Signs Temp Pulse Resp BP O2 Del Method 96.1 F L 81 18 131/86 H Room Air 02/12/25 08:05 02/12/25 08:05 02/12/25 08:05 02/12/25 08:05 02/12/25 08:05 Oxygen Delivery Method Room Air Weight: 94.801 kg Body Mass Index (BMI) 28.3 Physical Exam Narrative Neurovascular status unchanged. Full-thickness wound noted to the plantar aspect of the right first MPJ healed. patient has neuropathy from diabetes and a plantar flexed 1st ray to the right foot contributing to wound formation. Const alert and oriented x3 Debridement Note Debridement Note Post-Debridement Measurements and Additional Note: Post-Debridement Measurements/Treatment - Nurse 1 - General Ulcer Assessment Start: 01/29/25 08:13 Freq: Status: Active Protocol: VARUN.LOWELLY Activity Type Activity Date Activity User E-sign Co-sign Detail Recorded Client Recorded Date Recorded By Document 01/29/25 08:13 KW [id number] 01/29/25 08:16 KW Document 02/05/25 08:18 ML [id number] 02/05/25 08:22 ML Document 02/12/25 08:05 KW [id number] 02/12/25 08:09 KW 01/29/25 02/05/25 02/12/25 08:13 08:18 08:05 - Today's Visit Information Type of service Follow-up Visit Follow-up Visit Follow-up Visit (Physician/ENGRAVER APPRENTICE DECORATIVE (Physician/ENGRAVER APPRENTICE DECORATIVE (Physician/ENGRAVER APPRENTICE DECORATIVE ) ) ) Arrival Mode Ambulatory, Ambulatory Ambulatory, Crutches Crutches Transfer Assistance None Patient Identification Verified (Name & Yes Yes Yes ) Patient Requires Transmission-Based No Precautions Height and Weight Body Mass Index (BMI) 28.3 28.3 28.3 BMI Classification Overweight Overweight Overweight Vital Signs Temperature (97.8 F-99.1 F) 96.5 F L 97.4 F L 96.1 F L Temperature Source Temporal Temporal Temporal Pulse Rate (60-100) 85 81 81 Pulse Location Monitor Monitor Monitor Respiratory Rate (12-18) 16 14 18 Respiratory rate source Observation Observation Observation Oxygen Delivery Method Room Air Room Air Blood Pressure (90/60-120/80) 161/102 H 162/90 H 131/86 H Blood Pressure Mean (mm Hg) 121 114 101 Source Monitor Monitor Monitor Position Semi-Fowlers Sitting Semi-Fowlers Blood Pressure Location Left Arm Right Arm Right Arm History Since Last Visit- (Skip if this is Patient's initial visit) Have you changed medications since your No No No last visit? Any new allergies or adverse reactions No No No Had a fall/change in ADL's that may No No No increase risk of falls Signs or symptoms of abuse and/or No No No neglect since last visit Have you been in the hospital since your No No No last visit? Has dressing in place as prescribed Yes Yes Yes Has compression in place as prescribed Yes Yes N/A Has offloadiing in place as prescribed Yes N/A Yes Experienced any changes in pain level or No No No management Left Footwear Regular Shoe Regular Shoe Right Footwear Removable Cast Removable Cast Walker/Walking Walker/Walking Boot Boot Pain Scale: 0-10 Numeric Is Patient Pain Free? Yes Yes Yes WC - Nurse 1 - General Ulcer Measurement Start: 01/29/25 08:13 Freq: Status: Active Protocol: Activity Type Activity Date Activity User E-sign Co-sign Detail Recorded Client Recorded Date Recorded By Document 01/29/25 08:13 KW [id number] 01/29/25 08:16 KW Document 02/05/25 08:18 ML [id number] 02/05/25 08:22 ML Document 02/12/25 08:05 KW [id number] 02/12/25 08:09 KW 01/29/25 02/05/25 02/12/25 08:13 08:18 08:05 Wound Center Nurse 1 #1 rt plantar ft -Current Size (cm) - Length 0.1 0.1 0.1 -Current Size (cm) - Width 0.1 0.1 0.1 -Current Size (cm) - Depth 0 0.1 0 -Total Square Cm 0.01 0.01 0.01 -Date of Last Picture (Recall this 01/29/25 02/12/25 field) -Exudate Amt Small Small None Present -Exudate Type Serosanguineous Serosanguineous -Wound Margin Distinct, Outline Attached -Slough/Fibrin Yes -Necrosis Amt Small (1-33%) -Necrotic Tissue Type Adherent Slough -Texture (Wendy-wound Skin Appearance) Assessed,Callus Assessed Assessed,Callus -Moisture (Wendy-wound Skin Appearance) Assessed Assessed,Dry/ Assessed Scaly -Color (Wendy-wound Skin Appearance) Assessed Assessed Assessed -Temperature (Wendy-wound Skin No Abnormality No Abnormality No Abnormality Appearance) (Pt Warm) (Pt Warm) (Pt Warm) -Tenderness on Palpation (Wendy-wound No No No Skin Appearance) -Ulcer Cleansing Soap and Water Rinsed/ Irrigated with Saline -Foul Odor after Cleansing No No No -Anesthetic Used 5% Lidocaine 5% Lidocaine 5% Lidocaine Gel Gel Gel WC - Nurse 2 - General Ulcer CM Notes Start: 01/29/25 08:13 Freq: Status: Active Protocol: Activity Type Activity Date Activity User E-sign Co-sign Detail Recorded Client Recorded Date Recorded By Document 01/29/25 08:32 [id number] 01/29/25 08:38 Document 02/05/25 08:34 [id number] 02/05/25 08:36 Document 02/12/25 08:35 [id number] 02/12/25 08:36 01/29/25 02/05/25 02/12/25 08:32 08:34 08:35 Wound Center Nurse 2 #1 rt plantar ft -Time 08:32 08:35 -Correct Patient Yes Yes Yes -Correct Side, Site, Position Yes No No -Correct Procedure Yes Yes No -Procedure Performed Yes No -Type of Procedure Debridement -Clinical Debridement Subcutaneous -Tissue Removed Subcutaneous -Post Debridement (cm) - Length 0.5 0.1 0 -Post Debridement (cm) - Width 0.2 0.1 0 -Post Debridement (cm) - Depth 0.1 0.1 0 -Total Square (Post) (cm) 0.10 0.01 0 -Area of Debridement (cm) - Length 0.5 0.1 0 -Area of Debridement (cm) - Width 0.2 0.1 0 -Total Square (Area) (cm) 0.10 0.01 0 -Tunneling No No -Undermining/Tunneling No No -Circular Undermining No No -Wound/Ulcer Outcome Not Healed Not Healed Healed- Epithelialized -Ulcer Cleansing Rinsed/ Irrigated with Saline -Foul Odor after Cleansing No -Bioengineered Tissue Yes -Type of Bioengineered Tissue Epifix 18mm Disc -Expiration Date 07/27/29 -Product Lot Number [id number] -Percent Used 100 -Lot number of Saline Used [id number] -Bleeding Controlled with Pressure -Treatment Response Procedure Tolerated Well -Offloading Yes -Type of Offloading Camwalker -Assistive Device(s) Crutches -Debridement - Subq, 1st 20sq cm No -Apply Skin Sub - 1st 25 sq cm - Feet 1 -Epifix 18mm Disc Application 1-4 3 Pain Scale: 0-10 Numeric Is Patient Pain Free? Yes Yes Yes WC - Nurse 3 - General Ulcer D/C NN Start: 01/29/25 08:13 Freq: Status: Active Protocol: Activity Type Activity Date Activity User E-sign Co-sign Detail Recorded Client Recorded Date Recorded By Document 01/29/25 08:45 KW [id number] 01/29/25 08:45 KW Document 02/05/25 08:51 RB [id number] 02/05/25 08:51 RB Document 02/12/25 08:36 JF [id number] 02/12/25 08:37 JF 01/29/25 02/05/25 02/12/25 08:45 08:51 08:36 Wound Care Center Nurse 3 #1 rt plantar ft -Ulcer Cleansing Rinsed/ Irrigated with Saline -Primary Dressing Applied Silicone Border Foam 4x4 -Other Dressing betadine -Primary Dressing Covered/Secured with Dry Gauze,Dry Gauze & Roll Gauze,Secured with Tape -Silicone Border Foam 4x4 2 Treatment Response Procedure Tolerated Well Pain Scale: 0-10 Numeric Is Patient Pain Free? Yes Yes Yes WC - Visit Discharge Discharge Condition Stable Stable Stable Ambulatory Status Ambulatory, Ambulatory, Ambulatory, Crutches Crutches Crutches Transportation Private Auto Private Auto Private Auto Medication Reconcilliation completed & No No Yes provided to patient/care provider Clinical Summary of Care Provided Yes Yes Yes Assessment/Plan Assessment/Plan (1) Type 2 diabetes mellitus with diabetic polyneuropathy: CODE(S): E11.42 - Type 2 diabetes mellitus with diabetic polyneuropathy QUALIFIERS: Diabetes mellitus retirement insulin use: with retirement use Qualified Code(s): E11.42 - Type 2 diabetes mellitus with diabetic polyneuropathy; 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 Wound healed to right plantar foot today patient will continue offloading until receipt of dm shoes with custom inserts (2) Non-pressure chronic ulcer of other part of right foot with fat layer exposed: CODE(S): L97.512 - Non-pressure chronic ulcer of other part of right foot with fat layer exposed (3) Cellulitis of right lower limb: CODE(S): L03.115 - Cellulitis of right lower limb
--- NOTE | 2025-02-12 13:05 | WC ---
R PLANTAR FT 02/12/25
== END 2025-02-23 23:59 | disposition home or self-care (01) ==
LOC: WC 08:00
PROVIDERS: PCP Family Medicine; Referring Provider Podiatrist Foot & Ankle Surgery; Visit Provider Podiatrist
DX: E11.621 Type 2 diabetes mellitus with foot ulcer (principal); L97.412 Non-pressure chronic ulcer of right heel and midfoot with fat layer exposed; E11.42 Type 2 diabetes mellitus with diabetic polyneuropathy; L03.115 Cellulitis of right lower limb; Z79.84 Long term (current) use of oral hypoglycemic drugs; Z79.899 Other long term (current) drug therapy
CPT/HCPCS: 15275; 99213; Q4186; G0463

== ENCOUNTER 2025-03-19 08:00 | Outpatient (RCR) | payer OTHER, SELFPAY ==
[2025-02-24 00:36] VITALS: BP 131/86; PULSE 81; RESP 18; TEMP 35.6; BMI 28.3
[2025-02-26 08:01] VITALS: BP 141/93; PULSE 84; RESP 16; TEMP 35.9; BMI 28.3
[2025-02-26 08:53] VITALS: BP 154/88; PULSE 78; RESP 16; TEMP 36.1; BMI 28.3
--- NOTE | 2025-02-26 08:54 | PCM.WC.PN ---
History of Present Illness Date of Service: 02/26/25 Chief Complaint: Right plantar foot ulceration History of Wound: Follow-up on diabetic ulceration to right plantar first MPJ. Patient had pediatric flatfoot correction right foot. Patient has plantarflexed first ray and increased plantar pressure to plantar first MPJ creating neuropathic ulceration. Patient been ambulating cam boot reulceration is noted today. Patient denies constitutional symptoms or pain. Objective Data Objective Data Vital Signs: Vital Signs Temp Pulse Resp BP O2 Del Method 96.6 F L 84 16 141/93 H Room Air 02/26/25 08:01 02/26/25 08:01 02/26/25 08:01 02/26/25 08:01 02/26/25 08:01 Oxygen Delivery Method Room Air Weight: 94.801 kg Body Mass Index (BMI) 28.3 Physical Exam Narrative Neurovascular status unchanged. Full-thickness wound noted to the plantar first MPJ right foot. This wound does not probe deep undermining. There is periwound callus. No acute signs of infection. Pre and postdebridement measurements document nursing notes. Musculoskeletal: Rigidly plantarflexed right first ray. Equinus deformity right foot. These are contributing to wound formation with increased plantar pressures to the right forefoot. Const alert and oriented x3 Debridement Note Debridement Note Post-Debridement Measurements and Additional Note: Post-Debridement Measurements/Treatment - Nurse 1 - General Ulcer Assessment Start: 02/26/25 08:01 Freq: Status: Active Protocol: WC.LOWEXT Activity Type Activity Date Activity User E-sign Co-sign Detail Recorded Client Recorded Date Recorded By Document 02/26/25 08:01 LEANN [id number] 02/26/25 08:07 LEANN 02/26/25 08:01 - Today's Visit Information Type of service Follow-up Visit (Physician/HAIR SPECIALIST ) Arrival Mode Ambulatory Patient Identification Verified (Name & Yes ) Height and Weight Body Mass Index (BMI) 28.3 BMI Classification Overweight Vital Signs Temperature (97.8 F-99.1 F) 96.6 F L Temperature Source Temporal Pulse Rate (60-100) 84 Pulse Location Monitor Respiratory Rate (12-18) 16 Respiratory rate source Observation Oxygen Delivery Method Room Air Blood Pressure (90/60-120/80) 141/93 H Blood Pressure Mean (mm Hg) 109 Source Monitor Position Semi-Fowlers Blood Pressure Location Left Arm History Since Last Visit- (Skip if this is Patient's initial visit) Have you changed medications since your No last visit? Any new allergies or adverse reactions No Had a fall/change in ADL's that may No increase risk of falls Signs or symptoms of abuse and/or No neglect since last visit Have you been in the hospital since your No last visit? Has dressing in place as prescribed Yes Has compression in place as prescribed Yes Has offloadiing in place as prescribed Yes Experienced any changes in pain level or No management Left Footwear Regular Shoe Right Footwear Removable Cast Walker/Walking Boot Pain Scale: 0-10 Numeric Is Patient Pain Free? Yes VARUN - Nurse 2 - General Ulcer CM Notes Start: 02/26/25 08:01 Freq: Status: Active Protocol: Activity Type Activity Date Activity User E-sign Co-sign Detail Recorded Client Recorded Date Recorded By Document 02/26/25 08:31 DALIA [id number] 02/26/25 08:35 DALIA 02/26/25 08:31 Wound Center Nurse 2 #1 rt plantar ft -Time 08:33 -Correct Patient Yes -Correct Side, Site, Position Yes -Correct Procedure Yes -Procedure Performed Yes -Type of Procedure Debridement -Clinical Debridement Subcutaneous -Tissue Removed Subcutaneous -Post Debridement (cm) - Length 1.5 -Post Debridement (cm) - Width 0.3 -Post Debridement (cm) - Depth 0.1 -Total Square (Post) (cm) 0.45 -Area of Debridement (cm) - Length 1.5 -Area of Debridement (cm) - Width 0.3 -Total Square (Area) (cm) 0.45 -Tunneling No -Undermining/Tunneling No -Circular Undermining No -Wound/Ulcer Outcome Not Healed -Ulcer Cleansing Rinsed/ Irrigated with Saline -Foul Odor after Cleansing No -Bioengineered Tissue No -Bleeding Controlled with Pressure -Treatment Response Procedure Tolerated Well -Offloading Yes -Type of Offloading Camwalker -Debridement - Subq, 1st 20sq cm Yes Pain Scale: 0-10 Numeric Is Patient Pain Free? Yes VARUN - Nurse 3 - General Ulcer D/C NN Start: 02/26/25 08:01 Freq: Status: Active Protocol: Activity Type Activity Date Activity User E-sign Co-sign Detail Recorded Client Recorded Date Recorded By Document 02/26/25 08:43 [facility] [id number] 02/26/25 08:43 [facility] 02/26/25 08:43 Wound Care Center Nurse 3 #1 rt plantar ft -Ulcer Cleansing Rinsed/ Irrigated with Saline -Foul Odor after Cleansing No -Primary Dressing Covered/Secured with Dry Gauze & Roll Gauze -Other Covering betadine Pain Scale: 0-10 Numeric Is Patient Pain Free? 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 Wound recurrence noted to plantar right first MPJ Patient awaiting custom diabetic shoes from [employer]. Patient may require surgical management of right foot deformity to assist wound healing long-term. Patient has plantarflexed first ray equinus deformity. 2 options may be dorsiflexor he osteotomy to first ray to offload the plantar first MPJ. Another more minimally invasive option would be sesamoidectomy with tendo Achilles lengthening to offload or reduce plantar pressures creating wound formation plantar first MPJ. At this time we will continue local wound care for management of the wound with offloading with cam boot and crutches. Right plantar first MPJ wound is 6 was excisionally debrided down to including level subcutaneous tissue of all nonviable tissue using a #15 blade. Patient tolerated procedure anesthesia well in apparent satisfactory condition. Pre and postdebridement measurements document nursing notes. No anesthesia due to neuropathy. Patient will perform daily Betadine dressings. Patient will follow-up in 1 week. (2) Non-pressure chronic ulcer of other part of right foot with fat layer exposed: CODE(S): L97.512 - Non-pressure chronic ulcer of other part of right foot with fat layer exposed
--- NOTE | 2025-02-27 09:02 | WC ---
PHOTO 02/26/25 RIGHT PLANTAR
[2025-03-05 08:06] VITALS: BP 134/100; PULSE 95; RESP 16; TEMP 35.8; BMI 28.3
--- NOTE | 2025-03-05 08:51 | PCM.WC.PN ---
History of Present Illness Date of Service: 03/05/25 Chief Complaint: Right plantar foot ulceration History of Wound: Follow-up on diabetic ulceration to right plantar first MPJ. Patient had pediatric flatfoot correction right foot. Patient has plantarflexed first ray and increased plantar pressure to plantar first MPJ creating neuropathic ulceration. Patient been ambulating cam boot reulceration is noted today. Patient denies constitutional symptoms or pain. Objective Data Objective Data Vital Signs: Vital Signs Temp Pulse Resp BP O2 Del Method 96.4 F L 95 16 134/100 H Room Air 03/05/25 08:06 03/05/25 08:06 03/05/25 08:06 03/05/25 08:06 03/05/25 08:06 Oxygen Delivery Method Room Air Weight: 94.801 kg Body Mass Index (BMI) 28.3 Physical Exam Narrative Neurovascular status unchanged. Full-thickness wound noted to the plantar first MPJ right foot. This wound does not probe deep undermining. There is periwound callus. No acute signs of infection. Pre and postdebridement measurements document nursing notes. Musculoskeletal: Rigidly plantarflexed right first ray. Equinus deformity right foot. These are contributing to wound formation with increased plantar pressures to the right forefoot. Const alert and oriented x3 Debridement Note Debridement Note Post-Debridement Measurements and Additional Note: Post-Debridement Measurements/Treatment - Nurse 1 - General Ulcer Assessment Start: 02/26/25 08:01 Freq: Status: Active Protocol: .LOWEXT Activity Type Activity Date Activity User E-sign Co-sign Detail Recorded Client Recorded Date Recorded By Document 02/26/25 08:01 [id number] 02/26/25 08:07 Document 02/26/25 08:53 [facility] [id number] 02/26/25 08:57 [facility] Document 03/05/25 08:06 [facility] [id number] 03/05/25 08:10 [facility] 02/26/25 02/26/25 03/05/25 08:01 08:53 08:06 - Today's Visit Information Type of service Follow-up Visit Follow-up Visit Follow-up Visit (Physician/INCOME TAX ADJUSTER (Physician/INCOME TAX ADJUSTER (Physician/INCOME TAX ADJUSTER ) ) ) Arrival Mode Ambulatory Wheelchair Crutches Transfer Assistance Other None Transfer Assist (Other) 1 stand by Patient Identification Verified (Name & Yes Yes Yes ) Patient Requires Transmission-Based No No Precautions Height and Weight Body Mass Index (BMI) 28.3 28.3 28.3 BMI Classification Overweight Overweight Overweight Vital Signs Temperature (97.8 F-99.1 F) 96.6 F L 97 F L 96.4 F L Temperature Source Temporal Temporal Temporal Pulse Rate (60-100) 84 78 95 Pulse Location Monitor Monitor Monitor Respiratory Rate (12-18) 16 16 16 Respiratory rate source Observation Observation Observation Oxygen Delivery Method Room Air Room Air Room Air Blood Pressure (90/60-120/80) 141/93 H 154/88 H 134/100 H Blood Pressure Mean (mm Hg) 109 110 111 Source Monitor Monitor Monitor Position Semi-Fowlers Sitting Sitting Blood Pressure Location Left Arm Left Arm Left Arm History Since Last Visit- (Skip if this is Patient's initial visit) Have you changed medications since your No No No last visit? Any new allergies or adverse reactions No No No Had a fall/change in ADL's that may No No No increase risk of falls Signs or symptoms of abuse and/or No No No neglect since last visit Have you been in the hospital since your No No No last visit? Has dressing in place as prescribed Yes Yes Yes Has compression in place as prescribed Yes Yes N/A Has offloadiing in place as prescribed Yes Yes Yes Experienced any changes in pain level or No No No management Left Footwear Regular Shoe No Footwear Regular Shoe Right Footwear Removable Cast Diabetic Shoe Removable Cast Walker/Walking Walker/Walking Boot Boot Pain Scale: 0-10 Numeric Is Patient Pain Free? Yes Yes Yes WC - Nurse 1 - General Ulcer Measurement Start: 02/26/25 08:01 Freq: Status: Active Protocol: Activity Type Activity Date Activity User E-sign Co-sign Detail Recorded Client Recorded Date Recorded By Document 02/26/25 08:53 [facility] [id number] 02/26/25 08:57 [facility] Document 03/05/25 08:06 [facility] [id number] 03/05/25 08:10 BM 02/26/25 03/05/25 08:53 08:06 Wound Center Nurse 1 #1 lt plantar ft -Combined with other wound No -Current Size (cm) - Length 2.5 0.2 -Current Size (cm) - Width 2.5 0.1 -Current Size (cm) - Depth 0.1 0.2 -Total Square Cm 6.25 0.02 -Date of Last Picture (Recall this 02/26/25 field) -Photo Taken Yes -Epithelialization Small 1-33% Small 1-33% -Tunneling No No -Undermining/Tunneling No No -Circular Undermining No No -Exudate Amt Medium Medium -Exudate Type Serosanguineous Serosanguineous -Wound Margin Flat & Intact Distinct, Outline Attached -Granulation Amt Large (67-100%) Large (67-100%) -Granulation Quality Red Red -Slough/Fibrin Yes No -Necrosis Amt Small (1-33%) None Present (0 %) -Necrotic Tissue Type Adherent Slough -Texture (Wendy-wound Skin Appearance) Assessed, Assessed,Callus Scarring ,Scarring -Moisture (Wendy-wound Skin Appearance) Assessed, Assessed,Dry/ Maceration Scaly -Color (Wendy-wound Skin Appearance) Assessed Assessed -Temperature (Wendy-wound Skin No Abnormality No Abnormality Appearance) (Pt Warm) (Pt Warm) -Tenderness on Palpation (Wendy-wound No No Skin Appearance) -Ulcer Cleansing Rinsed/ Rinsed/ Irrigated with Irrigated with Saline Saline -Foul Odor after Cleansing No No -Anesthetic Used 5% Lidocaine 5% Lidocaine Gel Gel WC - Nurse 2 - General Ulcer CM Notes Start: 02/26/25 08:01 Freq: Status: Active Protocol: Activity Type Activity Date Activity User E-sign Co-sign Detail Recorded Client Recorded Date Recorded By Document 02/26/25 08:31 [facility] [id number] 02/26/25 08:35 Document 03/05/25 08:32 [id number] 03/05/25 08:34 02/26/25 03/05/25 08:31 08:32 Wound Center Nurse 2 #1 lt plantar ft -Time 08:33 08:32 -Correct Patient Yes Yes -Correct Side, Site, Position Yes Yes -Correct Procedure Yes Yes -Procedure Performed Yes Yes -Type of Procedure Debridement Debridement -Clinical Debridement Subcutaneous Subcutaneous -Tissue Removed Subcutaneous Subcutaneous -Post Debridement (cm) - Length 1.5 0.5 -Post Debridement (cm) - Width 0.3 0.3 -Post Debridement (cm) - Depth 0.1 0.1 -Total Square (Post) (cm) 0.45 0.15 -Area of Debridement (cm) - Length 1.5 0.5 -Area of Debridement (cm) - Width 0.3 0.3 -Total Square (Area) (cm) 0.45 0.15 -Tunneling No No -Undermining/Tunneling No No -Circular Undermining No No -Wound/Ulcer Outcome Not Healed Not Healed -Ulcer Cleansing Rinsed/ Rinsed/ Irrigated with Irrigated with Saline Saline -Foul Odor after Cleansing No No -Bioengineered Tissue No No -Bleeding Controlled with Pressure Pressure,Silver Nitrate ($) -Treatment Response Procedure Procedure Tolerated Well Tolerated Well -Offloading Yes Yes -Type of Offloading Camwalker Camwalker -Assistive Device(s) Crutches -Debridement - Subq, 1st 20sq cm Yes Yes Pain Scale: 0-10 Numeric Is Patient Pain Free? Yes Yes - Nurse 3 - General Ulcer D/C NN Start: 02/26/25 08:01 Freq: Status: Active Protocol: Activity Type Activity Date Activity User E-sign Co-sign Detail Recorded Client Recorded Date Recorded By Document 02/26/25 08:43 [facility] [id number] 02/26/25 08:43 [facility] Document 03/05/25 08:41 [id number] 03/05/25 08:42 02/26/25 03/05/25 08:43 08:41 Wound Care Center Nurse 3 #1 lt plantar ft -Ulcer Cleansing Rinsed/ Irrigated with Saline -Foul Odor after Cleansing No -Other Dressing betadine -Primary Dressing Covered/Secured with Dry Gauze & Dry Gauze & Roll Gauze Roll Gauze, Secured with Tape -Other Covering betadine Pain Scale: 0-10 Numeric Is Patient Pain Free? 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 Wound recurrence noted to plantar right first MPJ Patient awaiting custom diabetic shoes from [employer]. Review of lab work from 11/06/2024 yields a hemoglobin A1c of 9.4. Patient feels that his hemoglobin A1c has been improved since that time. New lab work has been ordered to evaluate for wound healing potential including nutritional labs as well as hemoglobin A1c. Rx for doxycycline 100 mg twice daily provided for 1 week due to concern from some mild local cellulitis Right plantar first MPJ wound was excisionally debrided down to and including level of subcutaneous tissue using a #15 blade, all nonviable tissue was removed. No anesthesia due to neuropathy. Patient tolerated procedure well. Pre and postdebridement measurements document nursing notes. Plan for daily Betadine dressings. Patient offloading with crutches and cam boot. Patient is awaiting custom diabetic shoes; however, today I discussed and encouraged improved blood glucose control and refer the patient to the dietitian to help with patient's diabetes management. I discussed that due to his poorly controlled diabetes significant neuropathy and foot deformity is high risk for continued ulceration and proximal limb loss. Discussed with patient that he may be a surgical candidate if diabetic shoes are insignificant and offloading his plantar ulceration. Patient may require tendo Achilles lengthening with sesamoidectomy versus dorsiflexor osteotomy of the first ray to offload the plantar first MPJ. Due to patient's poorly controlled diabetes he would be a significant surgical risk for surgical site infection, nonhealing, failure and requirement for revision or amputation. Discussed that patient should improve his blood sugar as this will improve his healing potential and may actually prevent the need for any surgical management long-term. Follow-up in 1 week. (2) Non-pressure chronic ulcer of other part of right foot with fat layer exposed: CODE(S): L97.512 - Non-pressure chronic ulcer of other part of right foot with fat layer exposed (3) Cellulitis of right lower limb: CODE(S): L03.115 - Cellulitis of right lower limb
[2025-03-05 10:31] LABS: Absolute Lymphocyte Count 1.84 X10^3/uL (0.83-4.51); Absolute Neutrophil Count 4.9 X10^3/uL (2.0-7.7); Basophil# 0.06 X10^3/uL; Basophil% 0.8 % (0-1); Eosinophil# 0.16 X10^3/uL; Eosinophils% 2.1 % (0-5); Hematocrit 38.1 % (40-54); Hemoglobin 13.1 g/dL (13.0-16.5); Lymphocyte # 1.84 X10^3/ul (0.83-4.51); Lymphocyte % 24.5 % (19-41); Mean Corp Hgb Conc 34.4 g/dL (32-36); Mean Corpuscular Hgb 29.4 pg (27.0-32.0); Mean Corpuscular Volume 85.4 fL (80-94); Mean Platelet Vol. 10.7 fl (6.2-12.0); Monocyte# 0.43 X10^3/uL; Monocyte% 5.7 % (0-10); NRBC Flagged by Analyzer 0 % (0-5); Neutrophil # 4.88 X10^3/uL (2.7-7.7); Neutrophil % 65.2 % (47-70); Platelet Count 253 K/mm3 (150-450); RBC Distribution Width CV 12.1 % (11.6-14.6); RBC Distribution Width SD 37.3 fl (35.1-43.9); Red Blood Count 4.46 M/mm3 (4.6-6.2); White Blood Count 7.5 K/mm3 (4.4-11.0)
[2025-03-05 10:50] LABS: Anion Gap 12 (5-15); BUN 22 mg/dL (4-19); BUN/Creat Ratio 19.5 RATIO (10-20); Calcium,Total 9.2 mg/dL (7.6-11.0); Carbon Dioxide 23.5 mmol/L (21.0-32.0); Chloride 102 mmol/L (98-108); Creatinine, Serum 1.11 mg/dL (0.70-1.20); EST Glomerular Filtration Rate 82 (>60); Estimated Creatinine Clearance 98.31 ml/min (50-250); Glucose 283 mg/dL (70-99); Sodium Level 137 mmol/L (133-145)
[2025-03-06 05:07] LABS: Prealbumin 29 mg/dL (12-34)
[2025-03-12 08:12] VITALS: BP 137/97; PULSE 89; RESP 16; TEMP 35.8; BMI 28.3
--- NOTE | 2025-03-12 10:02 | PCM.WC.PN ---
History of Present Illness Date of Service: 03/12/25 Chief Complaint: Right plantar foot ulceration History of Wound: Follow-up on diabetic ulceration to right plantar first MPJ. Patient had pediatric flatfoot correction right foot. Patient has plantarflexed first ray and increased plantar pressure to plantar first MPJ creating neuropathic ulceration. Patient been ambulating cam boot reulceration is noted today. Patient denies constitutional symptoms or pain. Objective Data Objective Data Vital Signs: Vital Signs Temp Pulse Resp BP O2 Del Method 96.5 F L 89 16 137/97 H Room Air 03/12/25 08:12 03/12/25 08:12 03/12/25 08:12 03/12/25 08:12 03/12/25 08:12 Oxygen Delivery Method Room Air Weight: 94.801 kg Body Mass Index (BMI) 28.3 Lab / Micro Data 03/05/25 09:16 03/05/25 09:16 Physical Exam Narrative Neurovascular status unchanged. Full-thickness wound noted to the plantar first MPJ right foot. This wound does not probe deep undermining. There is periwound callus. No acute signs of infection. Pre and postdebridement measurements document nursing notes. Musculoskeletal: Rigidly plantarflexed right first ray. Equinus deformity right foot. These are contributing to wound formation with increased plantar pressures to the right forefoot. Const alert and oriented x3 Debridement Note Debridement Note Post-Debridement Measurements and Additional Note: Post-Debridement Measurements/Treatment - Nurse 1 - General Ulcer Assessment Start: 02/26/25 08:01 Freq: Status: Active Protocol: .LOWEXT Activity Type Activity Date Activity User E-sign Co-sign Detail Recorded Client Recorded Date Recorded By Document 02/26/25 08:01 KW [id number] 02/26/25 08:07 KW Document 02/26/25 08:53 BM [id number] 02/26/25 08:57 BM Document 03/05/25 08:06 BM [id number] 03/05/25 08:10 BM Document 03/12/25 08:12 KW [id number] 03/12/25 08:17 KW 02/26/25 02/26/25 03/05/25 08:01 08:53 08:06 - Today's Visit Information Type of service Follow-up Visit Follow-up Visit Follow-up Visit (Physician/DATABASE ANALYST (Physician/DATABASE ANALYST (Physician/DATABASE ANALYST ) ) ) Arrival Mode Ambulatory Wheelchair Crutches Transfer Assistance Other None Transfer Assist (Other) 1 stand by Patient Identification Verified (Name & Yes Yes Yes ) Patient Requires Transmission-Based No No Precautions Height and Weight Body Mass Index (BMI) 28.3 28.3 28.3 BMI Classification Overweight Overweight Overweight Vital Signs Temperature (97.8 F-99.1 F) 96.6 F L 97 F L 96.4 F L Temperature Source Temporal Temporal Temporal Pulse Rate (60-100) 84 78 95 Pulse Location Monitor Monitor Monitor Respiratory Rate (12-18) 16 16 16 Respiratory rate source Observation Observation Observation Oxygen Delivery Method Room Air Room Air Room Air Blood Pressure (90/60-120/80) 141/93 H 154/88 H 134/100 H Blood Pressure Mean (mm Hg) 109 110 111 Source Monitor Monitor Monitor Position Semi-Fowlers Sitting Sitting Blood Pressure Location Left Arm Left Arm Left Arm History Since Last Visit- (Skip if this is Patient's initial visit) Have you changed medications since your No No No last visit? Any new allergies or adverse reactions No No No Had a fall/change in ADL's that may No No No increase risk of falls Signs or symptoms of abuse and/or No No No neglect since last visit Have you been in the hospital since your No No No last visit? Has dressing in place as prescribed Yes Yes Yes Has compression in place as prescribed Yes Yes N/A Has offloadiing in place as prescribed Yes Yes Yes Experienced any changes in pain level or No No No management Left Footwear Regular Shoe No Footwear Regular Shoe Right Footwear Removable Cast Diabetic Shoe Removable Cast Walker/Walking Walker/Walking Boot Boot Pain Scale: 0-10 Numeric Is Patient Pain Free? Yes Yes Yes 03/12/25 08:12 WC - Today's Visit Information Type of service Follow-up Visit (Physician/DATABASE ANALYST ) Arrival Mode Ambulatory Transfer Assistance Transfer Assist (Other) Patient Identification Verified (Name & Yes ) Patient Requires Transmission-Based Precautions Height and Weight Body Mass Index (BMI) 28.3 BMI Classification Overweight Vital Signs Temperature (97.8 F-99.1 F) 96.5 F L Temperature Source Temporal Pulse Rate (60-100) 89 Pulse Location Monitor Respiratory Rate (12-18) 16 Respiratory rate source Observation Oxygen Delivery Method Room Air Blood Pressure (90/60-120/80) 137/97 H Blood Pressure Mean (mm Hg) 110 Source Monitor Position Sitting Blood Pressure Location Left Arm History Since Last Visit- (Skip if this is Patient's initial visit) Have you changed medications since your No last visit? Any new allergies or adverse reactions No Had a fall/change in ADL's that may No increase risk of falls Signs or symptoms of abuse and/or No neglect since last visit Have you been in the hospital since your No last visit? Has dressing in place as prescribed Yes Has compression in place as prescribed Yes Has offloadiing in place as prescribed Yes Experienced any changes in pain level or No management Left Footwear Regular Shoe Right Footwear Removable Cast Walker/Walking Boot Pain Scale: 0-10 Numeric Is Patient Pain Free? Yes WC - Nurse 1 - General Ulcer Measurement Start: 02/26/25 08:01 Freq: Status: Active Protocol: Activity Type Activity Date Activity User E-sign Co-sign Detail Recorded Client Recorded Date Recorded By Document 02/26/25 08:53 [facility] [id number] 02/26/25 08:57 [facility] Document 03/05/25 08:06 [facility] [id number] 03/05/25 08:10 [facility] Document 03/12/25 08:12 KW [id number] 03/12/25 08:17 KW 02/26/25 03/05/25 03/12/25 08:53 08:06 08:12 Wound Center Nurse 1 #1 lt plantar ft -Combined with other wound No -Current Size (cm) - Length 2.5 0.2 0.1 -Current Size (cm) - Width 2.5 0.1 0.1 -Current Size (cm) - Depth 0.1 0.2 0.1 -Total Square Cm 6.25 0.02 0.01 -Date of Last Picture (Recall this 02/26/25 03/12/25 field) -Photo Taken Yes -Epithelialization Small 1-33% Small 1-33% -Tunneling No No -Undermining/Tunneling No No -Circular Undermining No No -Exudate Amt Medium Medium None Present -Exudate Type Serosanguineous Serosanguineous -Wound Margin Flat & Intact Distinct, Indistinct, Non Outline -Visible Attached -Granulation Amt Large (67-100%) Large (67-100%) -Granulation Quality Red Red -Slough/Fibrin Yes No -Necrosis Amt Small (1-33%) None Present (0 %) -Necrotic Tissue Type Adherent Slough -Texture (Wendy-wound Skin Appearance) Assessed, Assessed,Callus Assessed,Callus Scarring ,Scarring -Moisture (Wendy-wound Skin Appearance) Assessed, Assessed,Dry/ Assessed Maceration Scaly -Color (Wendy-wound Skin Appearance) Assessed Assessed Assessed -Temperature (Wendy-wound Skin No Abnormality No Abnormality No Abnormality Appearance) (Pt Warm) (Pt Warm) (Pt Warm) -Tenderness on Palpation (Wendy-wound No No No Skin Appearance) -Ulcer Cleansing Rinsed/ Rinsed/ Rinsed/ Irrigated with Irrigated with Irrigated with Saline Saline Saline -Foul Odor after Cleansing No No No -Anesthetic Used 5% Lidocaine 5% Lidocaine Gel Gel WC - Nurse 2 - General Ulcer CM Notes Start: 02/26/25 08:01 Freq: Status: Active Protocol: Activity Type Activity Date Activity User E-sign Co-sign Detail Recorded Client Recorded Date Recorded By Document 02/26/25 08:31 [id number] 02/26/25 08:35 Document 03/05/25 08:32 [id number] 03/05/25 08:34 Document 03/12/25 08:43 [id number] 03/12/25 08:48 Edit Result 03/12/25 08:43 JF (1) [id number] 03/12/25 08:50 JF (1) #1 lt plantar ft - Post Debridement (cm) - Length 0.5 => 0.1 - Post Debridement (cm) - Width 0.2 => 0.1 - Total Square (Post) (cm) 0.10 => 0.01 - Area of Debridement (cm) - Length 0.5 => 0.1 - Area of Debridement (cm) - Width 0.2 => 0.1 - Total Square (Area) (cm) 0.10 => 0.01 02/26/25 03/05/25 03/12/25 08:31 08:32 08:43 Wound Center Nurse 2 #1 lt plantar ft -Time 08:33 08:32 08:43 -Correct Patient Yes Yes Yes -Correct Side, Site, Position Yes Yes Yes -Correct Procedure Yes Yes Yes -Procedure Performed Yes Yes Yes -Type of Procedure Debridement Debridement Debridement -Clinical Debridement Subcutaneous Subcutaneous Subcutaneous -Tissue Removed Subcutaneous Subcutaneous Subcutaneous -Post Debridement (cm) - Length 1.5 0.5 0.1 -Post Debridement (cm) - Width 0.3 0.3 0.1 -Post Debridement (cm) - Depth 0.1 0.1 0.1 -Total Square (Post) (cm) 0.45 0.15 0.01 -Area of Debridement (cm) - Length 1.5 0.5 0.1 -Area of Debridement (cm) - Width 0.3 0.3 0.1 -Total Square (Area) (cm) 0.45 0.15 0.01 -Tunneling No No No -Undermining/Tunneling No No No -Circular Undermining No No No -Wound/Ulcer Outcome Not Healed Not Healed Not Healed -Ulcer Cleansing Rinsed/ Rinsed/ Rinsed/ Irrigated with Irrigated with Irrigated with Saline Saline Saline -Foul Odor after Cleansing No No No -Bioengineered Tissue No No No -Bleeding Controlled with Pressure Pressure,Silver Pressure Nitrate ($) -Treatment Response Procedure Procedure Procedure Tolerated Well Tolerated Well Tolerated Well -Offloading Yes Yes Yes -Type of Offloading Camwalker Camwalker Camwalker -Assistive Device(s) Crutches -Debridement - Subq, 1st 20sq cm Yes Yes Yes Pain Scale: 0-10 Numeric Is Patient Pain Free? Yes Yes Yes WC - Nurse 3 - General Ulcer D/C NN Start: 02/26/25 08:01 Freq: Status: Active Protocol: Activity Type Activity Date Activity User E-sign Co-sign Detail Recorded Client Recorded Date Recorded By Document 02/26/25 08:43 [facility] [id number] 02/26/25 08:43 [facility] Document 03/05/25 08:41 KW [id number] 03/05/25 08:42 KW Document 03/12/25 08:57 KW [id number] 03/12/25 08:58 KW 02/26/25 03/05/25 03/12/25 08:43 08:41 08:57 Wound Care Center Nurse 3 #1 lt plantar ft -Ulcer Cleansing Rinsed/ Irrigated with Saline -Foul Odor after Cleansing No -Other Dressing betadine ATB ointment -Primary Dressing Covered/Secured with Dry Gauze & Dry Gauze & Dry Gauze, Roll Gauze Roll Gauze, Secured with Secured with Tape Tape -Other Covering betadine -Wound Comment(s) if wound gets too wet return to betadine Pain Scale: 0-10 Numeric Is Patient Pain Free? 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 Wound recurrence noted to plantar right first MPJ Patient awaiting custom diabetic shoes from [email or web address]. Review of lab work from 11/06/2024 yields a hemoglobin A1c of 9.4. Patient feels that his hemoglobin A1c has been improved since that time. New lab work has been ordered to evaluate for wound healing potential including nutritional labs as well as hemoglobin A1c. Rx for doxycycline 100 mg twice daily provided for 1 week due to concern from some mild local cellulitis Right plantar first MPJ wound was excisionally debrided down to and including level of subcutaneous tissue using a #15 blade, all nonviable tissue was removed. No anesthesia due to neuropathy. Patient tolerated procedure well. Pre and postdebridement measurements document nursing notes. Plan for daily Betadine dressings. Patient offloading with crutches and cam boot. Patient is awaiting custom diabetic shoes; however, today I discussed and encouraged improved blood glucose control and refer the patient to the dietitian to help with patient's diabetes management. I discussed that due to his poorly controlled diabetes significant neuropathy and foot deformity is high risk for continued ulceration and proximal limb loss. Discussed with patient that he may be a surgical candidate if diabetic shoes are insignificant and offloading his plantar ulceration. Patient may require tendo Achilles lengthening with sesamoidectomy versus dorsiflexor osteotomy of the first ray to offload the plantar first MPJ. Due to patient's poorly controlled diabetes he would be a significant surgical risk for surgical site infection, nonhealing, failure and requirement for revision or amputation. Discussed that patient should improve his blood sugar as this will improve his healing potential and may actually prevent the need for any surgical management long-term. Follow-up in 1 week. (2) Non-pressure chronic ulcer of other part of right foot with fat layer exposed: CODE(S): L97.512 - Non-pressure chronic ulcer of other part of right foot with fat layer exposed (3) Cellulitis of right lower limb: CODE(S): L03.115 - Cellulitis of right lower limb
--- NOTE | 2025-03-13 08:32 | WC ---
PHOTO 03/11/25 RIGHT PLANTAR FOOT
[2025-03-19 08:09] VITALS: BP 133/98; PULSE 83; RESP 16; TEMP 35.6; BMI 28.3
--- NOTE | 2025-03-19 08:44 | PN.PCM_ITS ---
History of Present Illness Date of Service: 03/19/25 Chief Complaint: Right plantar foot ulceration History of Wound: Follow-up on diabetic ulceration to right plantar first MPJ. Patient had pediatric flatfoot correction right foot. Patient has plantarflexed first ray and increased plantar pressure to plantar first MPJ creating neuropathic ulceration. Patient been ambulating cam boot reulceration is noted today. Patient denies constitutional symptoms or pain. Objective Data Objective Data Vital Signs: Vital Signs Temp Pulse Resp BP O2 Del Method 96.1 F L 83 16 133/98 H Room Air 03/19/25 08:09 03/19/25 08:09 03/19/25 08:09 03/19/25 08:09 03/19/25 08:09 Oxygen Delivery Method Room Air Weight: 94.801 kg Body Mass Index (BMI) 28.3 Lab / Micro Data 03/05/25 09:16 03/05/25 09:16 Physical Exam Narrative Neurovascular status unchanged. Full-thickness wound noted to the plantar first MPJ right foot - healed. No acute signs of infection. Musculoskeletal: Rigidly plantarflexed right first ray. Equinus deformity right foot. These are contributing to wound formation with increased plantar pressures to the right forefoot. Const alert and oriented x3 Debridement Note Debridement Note Post-Debridement Measurements and Additional Note: Post-Debridement Measurements/Treatment - Nurse 1 - General Ulcer Assessment Start: 02/26/25 08:01 Freq: Status: Active Protocol: .LOWEXT Activity Type Activity Date Activity User E-sign Co-sign Detail Recorded Client Recorded Date Recorded By Document 02/26/25 08:01 [id number] 02/26/25 08:07 Document 02/26/25 08:53 [facility] [id number] 02/26/25 08:57 BM Document 03/05/25 08:06 BM [id number] 03/05/25 08:10 BM Document 03/12/25 08:12 KW [id number] 03/12/25 08:17 KW Document 03/19/25 08:09 BM [id number] 03/19/25 08:11 BMF 02/26/25 02/26/25 03/05/25 08:01 08:53 08:06 - Today's Visit Information Type of service Follow-up Visit Follow-up Visit Follow-up Visit (Physician/CERT OCCUPATIONAL THERAPY ASST (Physician/CERT OCCUPATIONAL THERAPY ASST (Physician/CERT OCCUPATIONAL THERAPY ASST ) ) ) Arrival Mode Ambulatory Wheelchair Crutches Transfer Assistance Other None Transfer Assist (Other) 1 stand by Patient Identification Verified (Name & Yes Yes Yes ) Patient Requires Transmission-Based No No Precautions Height and Weight Body Mass Index (BMI) 28.3 28.3 28.3 BMI Classification Overweight Overweight Overweight Vital Signs Temperature (97.8 F-99.1 F) 96.6 F L 97 F L 96.4 F L Temperature Source Temporal Temporal Temporal Pulse Rate (60-100) 84 78 95 Pulse Location Monitor Monitor Monitor Respiratory Rate (12-18) 16 16 16 Respiratory rate source Observation Observation Observation Oxygen Delivery Method Room Air Room Air Room Air Blood Pressure (90/60-120/80) 141/93 H 154/88 H 134/100 H Blood Pressure Mean (mm Hg) 109 110 111 Source Monitor Monitor Monitor Position Semi-Fowlers Sitting Sitting Blood Pressure Location Left Arm Left Arm Left Arm History Since Last Visit- (Skip if this is Patient's initial visit) Have you changed medications since your No No No last visit? Any new allergies or adverse reactions No No No Had a fall/change in ADL's that may No No No increase risk of falls Signs or symptoms of abuse and/or No No No neglect since last visit Have you been in the hospital since your No No No last visit? Has dressing in place as prescribed Yes Yes Yes Has compression in place as prescribed Yes Yes N/A Has offloadiing in place as prescribed Yes Yes Yes Experienced any changes in pain level or No No No management Left Footwear Regular Shoe No Footwear Regular Shoe Right Footwear Removable Cast Diabetic Shoe Removable Cast Walker/Walking Walker/Walking Boot Boot Pain Scale: 0-10 Numeric Is Patient Pain Free? Yes Yes Yes 03/12/25 03/19/25 08:12 08:09 WC - Today's Visit Information Type of service Follow-up Visit Follow-up Visit (Physician/CERT OCCUPATIONAL THERAPY ASST (Physician/CERT OCCUPATIONAL THERAPY ASST ) ) Arrival Mode Ambulatory Ambulatory, Crutches Transfer Assistance None Transfer Assist (Other) Patient Identification Verified (Name & Yes Yes ) Patient Requires Transmission-Based No Precautions Height and Weight Body Mass Index (BMI) 28.3 28.3 BMI Classification Overweight Overweight Vital Signs Temperature (97.8 F-99.1 F) 96.5 F L 96.1 F L Temperature Source Temporal Temporal Pulse Rate (60-100) 89 83 Pulse Location Monitor Monitor Respiratory Rate (12-18) 16 16 Respiratory rate source Observation Observation Oxygen Delivery Method Room Air Room Air Blood Pressure (90/60-120/80) 137/97 H 133/98 H Blood Pressure Mean (mm Hg) 110 109 Source Monitor Monitor Position Sitting Sitting Blood Pressure Location Left Arm History Since Last Visit- (Skip if this is Patient's initial visit) Have you changed medications since your No No last visit? Any new allergies or adverse reactions No No Had a fall/change in ADL's that may No No increase risk of falls Signs or symptoms of abuse and/or No No neglect since last visit Have you been in the hospital since your No No last visit? Has dressing in place as prescribed Yes Yes Has compression in place as prescribed Yes Has offloadiing in place as prescribed Yes Yes Experienced any changes in pain level or No No management Left Footwear Regular Shoe Regular Shoe Right Footwear Removable Cast Removable Cast Walker/Walking Walker/Walking Boot Boot Pain Scale: 0-10 Numeric Is Patient Pain Free? Yes Yes - Nurse 1 - General Ulcer Measurement Start: 02/26/25 08:01 Freq: Status: Active Protocol: Activity Type Activity Date Activity User E-sign Co-sign Detail Recorded Client Recorded Date Recorded By Document 02/26/25 08:53 [facility] [id number] 02/26/25 08:57 [facility] Document 03/05/25 08:06 Junko Tada [id number] 03/05/25 08:10 [facility] Document 03/12/25 08:12 [id number] 03/12/25 08:17 KW Document 03/19/25 08:09 Junko Tada [id number] 03/19/25 08:11 BMF 02/26/25 03/05/25 03/12/25 08:53 08:06 08:12 Wound Center Nurse 1 #1 lt plantar ft -Combined with other wound No -Current Size (cm) - Length 2.5 0.2 0.1 -Current Size (cm) - Width 2.5 0.1 0.1 -Current Size (cm) - Depth 0.1 0.2 0.1 -Total Square Cm 6.25 0.02 0.01 -Date of Last Picture (Recall this 02/26/25 03/12/25 field) -Photo Taken Yes -Epithelialization Small 1-33% Small 1-33% -Tunneling No No -Undermining/Tunneling No No -Circular Undermining No No -Exudate Amt Medium Medium None Present -Exudate Type Serosanguineous Serosanguineous -Wound Margin Flat & Intact Distinct, Indistinct, Non Outline -Visible Attached -Granulation Amt Large (67-100%) Large (67-100%) -Granulation Quality Red Red -Slough/Fibrin Yes No -Necrosis Amt Small (1-33%) None Present (0 %) -Necrotic Tissue Type Adherent Slough -Texture (Wendy-wound Skin Appearance) Assessed, Assessed,Callus Assessed,Callus Scarring ,Scarring -Moisture (Wendy-wound Skin Appearance) Assessed, Assessed,Dry/ Assessed Maceration Scaly -Color (Wendy-wound Skin Appearance) Assessed Assessed Assessed -Temperature (Wendy-wound Skin No Abnormality No Abnormality No Abnormality Appearance) (Pt Warm) (Pt Warm) (Pt Warm) -Tenderness on Palpation (Wendy-wound No No No Skin Appearance) -Ulcer Cleansing Rinsed/ Rinsed/ Rinsed/ Irrigated with Irrigated with Irrigated with Saline Saline Saline -Foul Odor after Cleansing No No No -Anesthetic Used 5% Lidocaine 5% Lidocaine Gel Gel 03/19/25 08:09 Wound Center Nurse 1 #1 lt plantar ft -Combined with other wound No -Current Size (cm) - Length 0.1 -Current Size (cm) - Width 0.1 -Current Size (cm) - Depth 0.1 -Total Square Cm 0.01 -Date of Last Picture (Recall this 03/19/25 field) -Photo Taken -Epithelialization Large 67-100% -Tunneling No -Undermining/Tunneling No -Circular Undermining No -Exudate Amt None Present -Exudate Type -Wound Margin -Granulation Amt -Granulation Quality -Slough/Fibrin -Necrosis Amt -Necrotic Tissue Type -Texture (Wendy-wound Skin Appearance) Assessed,Callus ,Scarring -Moisture (Wendy-wound Skin Appearance) Assessed,Dry/ Scaly -Color (Wendy-wound Skin Appearance) Assessed -Temperature (Wendy-wound Skin No Abnormality Appearance) (Pt Warm) -Tenderness on Palpation (Wendy-wound No Skin Appearance) -Ulcer Cleansing Rinsed/ Irrigated with Saline -Foul Odor after Cleansing No -Anesthetic Used WC - Nurse 2 - General Ulcer CM Notes Start: 02/26/25 08:01 Freq: Status: Active Protocol: Activity Type Activity Date Activity User E-sign Co-sign Detail Recorded Client Recorded Date Recorded By Document 02/26/25 08:31 JF [id number] 02/26/25 08:35 JF Document 03/05/25 08:32 JF [id number] 03/05/25 08:34 JF Document 03/12/25 08:43 JF [id number] 03/12/25 08:48 JF Edit Result 03/12/25 08:43 JF (1) [id number] 03/12/25 08:50 JF Document 03/19/25 08:36 DS [id number] 03/19/25 08:38 DS (1) #1 lt plantar ft - Post Debridement (cm) - Length 0.5 => 0.1 - Post Debridement (cm) - Width 0.2 => 0.1 - Total Square (Post) (cm) 0.10 => 0.01 - Area of Debridement (cm) - Length 0.5 => 0.1 - Area of Debridement (cm) - Width 0.2 => 0.1 - Total Square (Area) (cm) 0.10 => 0.01 02/26/25 03/05/25 03/12/25 08:31 08:32 08:43 Wound Center Nurse 2 #1 lt plantar ft -Time 08:33 08:32 08:43 -Correct Patient Yes Yes Yes -Correct Side, Site, Position Yes Yes Yes -Correct Procedure Yes Yes Yes -Procedure Performed Yes Yes Yes -Type of Procedure Debridement Debridement Debridement -Clinical Debridement Subcutaneous Subcutaneous Subcutaneous -Tissue Removed Subcutaneous Subcutaneous Subcutaneous -Post Debridement (cm) - Length 1.5 0.5 0.1 -Post Debridement (cm) - Width 0.3 0.3 0.1 -Post Debridement (cm) - Depth 0.1 0.1 0.1 -Total Square (Post) (cm) 0.45 0.15 0.01 -Area of Debridement (cm) - Length 1.5 0.5 0.1 -Area of Debridement (cm) - Width 0.3 0.3 0.1 -Total Square (Area) (cm) 0.45 0.15 0.01 -Tunneling No No No -Undermining/Tunneling No No No -Circular Undermining No No No -Wound/Ulcer Outcome Not Healed Not Healed Not Healed -Ulcer Cleansing Rinsed/ Rinsed/ Rinsed/ Irrigated with Irrigated with Irrigated with Saline Saline Saline -Foul Odor after Cleansing No No No -Bioengineered Tissue No No No -Bleeding Controlled with Pressure Pressure,Silver Pressure Nitrate ($) -Treatment Response Procedure Procedure Procedure Tolerated Well Tolerated Well Tolerated Well -Offloading Yes Yes Yes -Type of Offloading Camwalker Camwalker Camwalker -Assistive Device(s) Crutches -Debridement - Subq, 1st 20sq cm Yes Yes Yes Pain Scale: 0-10 Numeric Is Patient Pain Free? Yes Yes Yes 03/19/25 08:36 Wound Center Nurse 2 #1 lt plantar ft -Time 08:37 -Correct Patient Yes -Correct Side, Site, Position Yes -Correct Procedure -Procedure Performed No -Type of Procedure -Clinical Debridement -Tissue Removed -Post Debridement (cm) - Length -Post Debridement (cm) - Width -Post Debridement (cm) - Depth -Total Square (Post) (cm) -Area of Debridement (cm) - Length -Area of Debridement (cm) - Width -Total Square (Area) (cm) -Tunneling -Undermining/Tunneling -Circular Undermining -Wound/Ulcer Outcome Healed- Epithelialized -Ulcer Cleansing -Foul Odor after Cleansing -Bioengineered Tissue -Bleeding Controlled with -Treatment Response -Offloading -Type of Offloading -Assistive Device(s) -Debridement - Subq, 1st 20sq cm Pain Scale: 0-10 Numeric Is Patient Pain Free? Yes - Nurse 3 - General Ulcer D/C NN Start: 02/26/25 08:01 Freq: Status: Active Protocol: Activity Type Activity Date Activity User E-sign Co-sign Detail Recorded Client Recorded Date Recorded By Document 02/26/25 08:43 BMF [id number] 02/26/25 08:43 BMF Document 03/05/25 08:41 KW [id number] 03/05/25 08:42 KW Document 03/12/25 08:57 KW [id number] 03/12/25 08:58 KW Document 03/19/25 08:42 DS [id number] 03/19/25 08:42 DS 02/26/25 03/05/25 03/12/25 08:43 08:41 08:57 Wound Care Center Nurse 3 #1 lt plantar ft -Ulcer Cleansing Rinsed/ Irrigated with Saline -Foul Odor after Cleansing No -Other Dressing betadine ATB ointment -Primary Dressing Covered/Secured with Dry Gauze & Dry Gauze & Dry Gauze, Roll Gauze Roll Gauze, Secured with Secured with Tape Tape -Other Covering betadine -Wound Comment(s) if wound gets too wet return to betadine Pain Scale: 0-10 Numeric Is Patient Pain Free? Yes Yes Yes WC - Visit Discharge Discharge Condition Stable Stable Stable Ambulatory Status Ambulatory, Ambulatory Ambulatory, Crutches Crutches Transportation Private Auto Private Auto Private Auto Medication Reconcilliation completed & No No provided to patient/care provider Clinical Summary of Care Provided Yes Yes 03/19/25 08:42 Wound Care Center Nurse 3 #1 lt plantar ft -Ulcer Cleansing -Foul Odor after Cleansing -Other Dressing antibiotic ointment -Primary Dressing Covered/Secured with Dry Gauze, Secured with Tape -Other Covering -Wound Comment(s) Pain Scale: 0-10 Numeric Is Patient Pain Free? 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 Wound healed today to plantar right first MPJ Patient awaiting custom diabetic shoes from [employer] Review of lab work from 11/06/2024 yields a hemoglobin A1c of 9.4. Patient feels that his hemoglobin A1c has been improved since that time - patient changing DM meds per PCP Patient offloading with crutches and cam boot. Patient is awaiting custom diabetic shoes; however, today I discussed and encouraged improved blood glucose control and refer the patient to the dietitian to help with patient's diabetes management. I discussed that due to his poorly controlled diabetes significant neuropathy and foot deformity is high risk for continued ulceration and proximal limb loss. Discussed with patient that he may be a surgical candidate if diabetic shoes are insignificant and offloading his plantar ulceration. Patient may require tendo Achilles lengthening with sesamoidectomy versus dorsiflexor osteotomy of the first ray to offload the plantar first MPJ. Due to patient's poorly controlled diabetes he would be a significant surgical risk for surgical site infection, nonhealing, failure and requirement for revision or amputation. Discussed that patient should improve his blood sugar as this will improve his healing potential and may actually prevent the need for any surgical management long-term. Follow-up in 1 week. (2) Non-pressure chronic ulcer of other part of right foot with fat layer exposed: CODE(S): L97.512 - Non-pressure chronic ulcer of other part of right foot with fat layer exposed (3) Cellulitis of right lower limb: CODE(S): L03.115 - Cellulitis of right lower limb
--- NOTE | 2025-03-19 12:14 | WC ---
Transfer of care from Dr. Collazo to Dr. Werner effective end of day 03/19/25
--- NOTE | 2025-03-19 13:42 | WC ---
PHOTO 03/19/25 RIGHT PLANTAR
== END 2025-03-25 23:59 | disposition home or self-care (01) ==
LOC: WC 08:00
PROVIDERS: Podiatrist; PCP Family Medicine; Referring Provider Podiatrist Foot & Ankle Surgery; Visit Provider Podiatrist Foot & Ankle Surgery
DX: E11.621 Type 2 diabetes mellitus with foot ulcer (principal); L97.412 Non-pressure chronic ulcer of right heel and midfoot with fat layer exposed; E11.42 Type 2 diabetes mellitus with diabetic polyneuropathy; Z79.4 Long term (current) use of insulin; Q66.89 Other specified congenital deformities of feet; L03.115 Cellulitis of right lower limb; Z79.84 Long term (current) use of oral hypoglycemic drugs
CPT/HCPCS: 11042; 36415; 80048; 83036; 84134; 85025; 99213; G0463

== ENCOUNTER 2025-03-27 08:02 | Outpatient (RCR) | payer OTHER, SELFPAY ==
[2025-03-27 08:12] VITALS: BP 157/99; RESP 18; TEMP 36.4
--- NOTE | 2025-03-27 09:06 | PCM.WC.PN ---
History of Present Illness Date of Service: 03/27/25 Chief Complaint: Right plantar foot ulceration History of Wound: Follow-up on diabetic ulceration to right plantar first MPJ. Patient had pediatric flatfoot correction right foot. Patient has plantarflexed first ray and increased plantar pressure to plantar first MPJ creating neuropathic ulceration. Patient been ambulating cam boot reulceration is noted today. Patient denies constitutional symptoms or pain. Progress of Wound: Healed full-thickness wound to the plantar aspect of the right first metatarsophalangeal joint Subjective Subjective Patient is a 50-year-old diabetic male seen in the wound care center today for follow-up evaluation of healed full-thickness wound of the plantar aspect of the first metatarsophalangeal joint. Patient will be getting nutrition consult while in office today. Patient has got his diabetic shoes from [employer]. He is grateful for his care. His blood sugar has been well-controlled. Denies trauma. Denies constitutional symptoms. No other pedal complaints at this time. Objective Data Objective Data Vital Signs: Vital Signs Temp Resp BP O2 Del Method 97.5 F L 18 157/99 H Room Air 03/27/25 08:12 03/27/25 08:12 03/27/25 08:12 03/27/25 08:12 Oxygen Delivery Method Room Air Physical Exam Narrative Neurovascular status is unchanged. Full-thickness wound to the plantar aspect of the first metatarsal phalangeal joint of the right foot is now healed. No signs of erythema drainage or concern for infection. Patient shows evidence of rigidly plantarflexed first ray. Equinus deformity to the right lower extremity is noted. No pain with calf compression. Const alert and oriented x3 Debridement Note Debridement Note Post-Debridement Measurements and Additional Note: Post-Debridement Measurements/Treatment WC - Nurse 1 - General Ulcer Assessment Start: 03/27/25 08:12 Freq: Status: Active Protocol: VARUN.NICOLE Activity Type Activity Date Activity User E-sign Co-sign Detail Recorded Client Recorded Date Recorded By Document 03/27/25 08:12 KW [id number] 03/27/25 08:15 KW Edit Result 03/27/25 08:12 KW (1) [id number] 03/27/25 08:15 KW (1) Blood Pressure (90/60-120/80) => 157/99 H Blood Pressure Mean (mm Hg) => 118 03/27/25 08:12 WC - Today's Visit Information Type of service Follow-up Visit (Physician/DISHWASHER BUSSER ) Arrival Mode Ambulatory Patient Identification Verified (Name & Yes ) Vital Signs Temperature (97.8 F-99.1 F) 97.5 F L Temperature Source Temporal Pulse Location Monitor Respiratory Rate (12-18) 18 Respiratory rate source Observation Oxygen Delivery Method Room Air Blood Pressure (90/60-120/80) 157/99 H Blood Pressure Mean (mm Hg) 118 History Since Last Visit- (Skip if this is Patient's initial visit) Have you changed medications since your No last visit? Any new allergies or adverse reactions No Had a fall/change in ADL's that may No increase risk of falls Signs or symptoms of abuse and/or No neglect since last visit Have you been in the hospital since your No last visit? Has dressing in place as prescribed Yes Has compression in place as prescribed N/A Has offloadiing in place as prescribed Yes Experienced any changes in pain level or No management Left Footwear Regular Shoe Right Footwear Removable Cast Walker/Walking Boot Pain Scale: 0-10 Numeric Is Patient Pain Free? Yes WC - Nurse 1 - General Ulcer Measurement Start: 03/27/25 08:12 Freq: Status: Active Protocol: Activity Type Activity Date Activity User E-sign Co-sign Detail Recorded Client Recorded Date Recorded By Document 03/27/25 08:12 KW [id number] 03/27/25 08:15 KW 03/27/25 08:12 Wound Center Nurse 1 #1 lt plantar ft -Current Size (cm) - Length 0.1 -Current Size (cm) - Width 0.1 -Current Size (cm) - Depth 0 -Total Square Cm 0.01 -Date of Last Picture (Recall this 03/27/25 field) -Exudate Amt None Present -Texture (Wendy-wound Skin Appearance) Assessed,Callus -Moisture (Wendy-wound Skin Appearance) Assessed -Color (Wendy-wound Skin Appearance) Assessed -Temperature (Wendy-wound Skin No Abnormality Appearance) (Pt Warm) -Tenderness on Palpation (Wendy-wound No Skin Appearance) -Ulcer Cleansing Rinsed/ Irrigated with Saline -Foul Odor after Cleansing No WC - Nurse 2 - General Ulcer CM Notes Start: 03/27/25 08:12 Freq: Status: Active Protocol: Activity Type Activity Date Activity User E-sign Co-sign Detail Recorded Client Recorded Date Recorded By Document 03/27/25 09:00 JF [id number] 03/27/25 09:01 03/27/25 09:00 Wound Center Nurse 2 -Correct Patient Yes -Correct Side, Site, Position No -Correct Procedure No -Procedure Performed No -Post Debridement (cm) - Length 0 -Post Debridement (cm) - Width 0 -Post Debridement (cm) - Depth 0 -Total Square (Post) (cm) 0 -Area of Debridement (cm) - Length 0 -Area of Debridement (cm) - Width 0 -Total Square (Area) (cm) 0 -Wound/Ulcer Outcome Healed- Epithelialized Pain Scale: 0-10 Numeric Is Patient Pain Free? Yes - Nurse 3 - General Ulcer D/C NN Start: 03/27/25 08:12 Freq: Status: Active Protocol: Activity Type Activity Date Activity User E-sign Co-sign Detail Recorded Client Recorded Date Recorded By Document 03/27/25 09:01 JF [id number] 03/27/25 09:02 03/27/25 09:01 Is Patient Pain Free? Yes WC - Visit Discharge Discharge Condition Stable Ambulatory Status Ambulatory Transportation Private Auto Notes: APPLIED BETADINE/ BANDAID TO AFFECTED AREA Assessment/Plan Assessment/Plan (1) Non-pressure chronic ulcer of other part of right foot with fat layer exposed: CODE(S): L97.512 - Non-pressure chronic ulcer of other part of right foot with fat layer exposed PLAN: Patient was examined and evaluated. All findings were discussed with the patient. All questions were answered to the patient satisfaction. After physical examination the patient's full-thickness wound to the plantar aspect of the first metatarsophalangeal joint is now healed. Educated the patient on the break-in process for his diabetic shoes which she is understanding of. The healed area was dressed with Betadine paint sterile Band-Aid. Patient was educated to check his feet twice per day. He is also educated the patient to check his feet every 2-3 hours when wearing the new diabetic shoes to make sure there is no injury of insult which was expressed and redness to potential pressure points. Business card was dispensed to the patient to follow-up with me in clinic in approximately 3 weeks. Patient was grateful for his care and will be discharged from the wound care center today.
--- NOTE | 2025-03-27 15:26 | WC ---
PHOTO 03/27/25 RIGHT PLANTAR
--- NOTE | 2025-04-01 08:51 | WC ---
PHOTO 03/27/25 RIGHT PLANTAR
== END 2025-04-09 09:08 | disposition home or self-care (01) ==
LOC: WC 08:02
PROVIDERS: PCP Family Medicine; Referring Provider Podiatrist Foot & Ankle Surgery; Visit Provider Podiatrist Foot & Ankle Surgery
DX: Z09 Encounter for follow-up examination after completed treatment for conditions other than malignant neoplasm (principal); E11.9 Type 2 diabetes mellitus without complications; Q66.89 Other specified congenital deformities of feet; Z79.84 Long term (current) use of oral hypoglycemic drugs; Z79.899 Other long term (current) drug therapy
CPT/HCPCS: 97802; 99213; G0463